=== PATIENT | female | born 1985 | race Caucasian/White ===

== ENCOUNTER 2016-07-12 18:27 | Emergency (ER) | payer MEDICAID ==
[2016-07-12] MEDS ORDERED: ACETAMINOPHEN 325 MG TABLET PO ONE (19:01)
--- NOTE | 2016-07-12 19:01 | ER Document Report ---
ED Medical Screen (RME) - General Stated Complaint: FEVER Notes: onset: woke up this Am ear swelling, headache and fever nonproductive cough and nasal drainage, been taking dayquil and nyquil I have greeted and performed a rapid initial assessment of this patient. A comprehensive ED assessment and evaluation of the patient, analysis of test results and completion of the medical decision making process will be conducted by additional ED providers. TRAVEL OUTSIDE OF THE [place] IN LAST 30 DAYS: No - Related Data Allergies/Adverse Reactions: No Known Allergies Allergy (Verified 08/17/14 17:34) Past Medical History Pulmonary Medical History: Reports: Hx Asthma, Hx Bronchitis Endocrine Medical History: Reports: Hx Diabetes Mellitus Type 1, Hx Diabetes Mellitus Type 2 Past Surgical History: Reports: Hx Section, Hx Orthopedic Surgery, Hx Tonsillectomy, Hx Tubal Ligation - Immunizations Immunizations up to date: Yes Hx Diphtheria, Pertussis, Tetanus Vaccination: Yes
[2016-07-12] MEDS ORDERED: ALBUTEROL SULFATE 0.083% NEB 2.5 MG/3 ML AMPUL NEB ONE (20:32)
[2016-07-12] MEDS ORDERED: IBUPROFEN 800 MG TABLET ONE (22:14)
[2016-07-12] MEDS ORDERED: DIPHENHYDRAMINE HCL 25 MG CAPSULE ONE (22:14)
[2016-07-12] MEDS ORDERED: ONDANSETRON 4 MG TAB.RAPDIS ONE (22:15)
== END 2016-07-12 21:37 | disposition left against medical advice (07) ==
LOC: ER 18:27
DX: R50.9 Fever, unspecified (principal); R51 Headache; R05 Cough; J45.909 Unspecified asthma, uncomplicated; E11.9 Type 2 diabetes mellitus without complications; Z98.51 Tubal ligation status
CPT/HCPCS: 94640; 99281; J3490

== ENCOUNTER 2016-07-12 21:56 | Emergency (ER) | payer SELFPAY ==
[2016-07-12] MEDS ORDERED: DIPHENHYDRAMINE HCL 50 MG CAPSULE PO ONE (22:09)
[2016-07-12] MEDS ORDERED: ONDANSETRON HCL 8 MG TABLET PO ONE (22:09)
[2016-07-12] MEDS ORDERED: IBUPROFEN 800 MG TABLET PO ONE (22:09)
--- NOTE | 2016-07-12 22:09 | ER Document Report ---
ED Medical Screen (RME) - General Stated Complaint: EAR PAIN,THROAT PAIN Notes: patient is a 31 year old female who woke up this morning with b/l ear swelling and pain, hives, shortness of breath consistent with her asthma, body aches, neck pain and headache, and blurry vision had been taking dayquil and nyquil for what she thought was the flu took benadryl earlier this afternoon type II Dm I have greeted and performed a rapid initial assessment of this patient. A comprehensive ED assessment and evaluation of the patient, analysis of test results and completion of the medical decision making process will be conducted by additional ED providers. TRAVEL OUTSIDE OF THE [place] IN LAST 30 DAYS: No - Related Data Allergies/Adverse Reactions: No Known Allergies Allergy (Verified 08/17/14 17:34) Past Medical History Pulmonary Medical History: Reports: Hx Asthma, Hx Bronchitis Endocrine Medical History: Reports: Hx Diabetes Mellitus Type 1, Hx Diabetes Mellitus Type 2 Renal/ Medical History: Denies: Hx Peritoneal Dialysis Past Surgical History: Reports: Hx Section, Hx Orthopedic Surgery, Hx Tonsillectomy, Hx Tubal Ligation - Immunizations Immunizations up to date: Yes Hx Diphtheria, Pertussis, Tetanus Vaccination: Yes Physical Exam - Vital signs Vitals: Temp Pulse Resp BP Pulse Ox 98.8 F 115 H 18 126/88 H 96 07/12/16 22:02 07/12/16 22:02 07/12/16 22:02 07/12/16 22:02 07/12/16 22:02 Course - Vital Signs Vital signs: Temp Pulse Resp BP Pulse Ox 98.8 F 115 H 18 126/88 H 96 07/12/16 22:02 07/12/16 22:02 07/12/16 22:02 07/12/16 22:02 07/12/16 22:02
--- NOTE | 2016-07-13 01:56 | ER Document Report ---
ED ENT - General Chief Complaint: Rash Stated Complaint: EAR PAIN,THROAT PAIN Time seen by provider: 01:52 Mode of Arrival: Ambulatory Information source: Patient TRAVEL OUTSIDE OF THE [place] IN LAST 30 DAYS: No - HPI Patient complains to provider of: Throat problem Onset: This morning Onset/Duration: Gradual Quality of pain: Achy Severity: Mild Pain Level: 2 Location of pain: Ears, Sinus, Throat Associated symptoms: Chills, Congestion, Cough, Dizziness, Fever, Runny nose, Sinus pain, Sore throat Similar symptoms previously: Yes Recently seen / treated by doctor: Yes Notes: Patient is a 31-year-old female presenting to the emergency room complaining of fever, ear pain, ear swelling, facial rash, headache, cough productive of clear phlegm, symptoms started yesterday, she denies any abdominal pain, no nausea, vomiting or diarrhea today, no dysuria or hematuria, states she was seen by her primary care provider yesterday for similar symptoms - Related Data Allergies/Adverse Reactions: No Known Allergies Allergy (Verified 08/17/14 17:34) Past Medical History - General Information source: Patient - Social History Smoking Status: Current Every Day Smoker Chew tobacco use (# tins/day): No Frequency of alcohol use: None Drug Abuse: None Family History: Reviewed & Not Pertinent Patient has suicidal ideation: No Patient has homicidal ideation: No Pulmonary Medical History: Reports: Hx Asthma, Hx Bronchitis Endocrine Medical History: Reports: Hx Diabetes Mellitus Type 1, Hx Diabetes Mellitus Type 2 Renal/ Medical History: Denies: Hx Peritoneal Dialysis Past Surgical History: Reports: Hx Section, Hx Orthopedic Surgery, Hx Tonsillectomy, Hx Tubal Ligation - Immunizations Immunizations up to date: Yes Hx Diphtheria, Pertussis, Tetanus Vaccination: Yes Review of Systems - Review of Systems Constitutional: Chills, Fever, Malaise EENT: See HPI Cardiovascular: No symptoms reported Respiratory: See HPI Gastrointestinal: No symptoms reported Genitourinary: No symptoms reported Female Genitourinary: No symptoms reported Musculoskeletal: See HPI Skin: No symptoms reported Hematologic/Lymphatic: No symptoms reported Neurological/Psychological: Headaches -: Yes All other systems reviewed and negative Physical Exam - Vital signs Vitals: Temp Pulse Resp BP Pulse Ox 98.8 F 115 H 18 126/88 H 96 07/12/16 22:02 07/12/16 22:02 07/12/16 22:02 07/12/16 22:02 07/12/16 22:02 Interpretation: Normal - General General appearance: Appears well, Alert - HEENT Head: Normocephalic, Atraumatic Eyes: Normal Conjunctiva: Normal Extraocular movements intact: Yes Eyelashes: Normal Pupils: PERRL Ears: Normal External canal: Normal Tympanic membrane: Normal Sinus: Normal Nasal: Normal Mouth/Lips: Normal Mucous membranes: Normal Pharynx: Normal Neck: Normal - Respiratory Respiratory status: No respiratory distress Chest status: Nontender Breath sounds: Normal Chest palpation: Normal - Cardiovascular Rhythm: Regular Heart sounds: Normal auscultation Murmur: No - Abdominal Inspection: Normal Distension: No distension Bowel sounds: Normal Tenderness: Nontender Organomegaly: No organomegaly - Back Back: Normal, Nontender - Extremities General upper extremity: Normal inspection, Nontender, Normal color, Normal ROM , Normal temperature General lower extremity: Normal inspection, Nontender, Normal color, Normal ROM , Normal temperature, Normal weight bearing. No: Caridad's sign - Neurological Neuro grossly intact: Yes Cognition: Normal Orientation: AAOx4 Rosendo Coma Scale Eye Opening: Spontaneous Riddle Coma Scale Verbal: Oriented Riddle Coma Scale Motor: Obeys Commands Rosendo Coma Scale Total: 15 Speech: Normal Motor strength normal: LUE, RUE, LLE, RLE Sensory: Normal - Psychological Associated symptoms: Normal affect, Normal mood - Skin Skin Temperature: Warm Skin Moisture: Dry Skin Color: Normal Course - Re-evaluation Re-evalutation: 07/13/16 01:54 Patient reports most of her symptoms are resolved, she still continues to report swelling and pain to her ears, I'm unable to palpate any edema, her ears are mildly erythematous, however there is no swelling, patient was advised that her symptoms are viral in nature, and advised to give supportive care, follow up with her primary care provider in one to 2 days or return if symptoms worsen , patient acknowledges understanding and agreement with this plan, patient was informed of her test results 07/13/16 02:50 Nursing staff reports that upon discharge patient expressed displeasure with her diagnosis and stated she will be going to [facility] for a second opinion - Vital Signs Vital signs: Temp Pulse Resp BP Pulse Ox 97.8 F 95 18 116/76 96 07/13/16 02:08 07/13/16 02:08 07/13/16 02:08 07/13/16 02:08 07/13/16 02:08 Discharge - Discharge Clinical Impression: Viral upper respiratory illness Acute allergic reaction Qualifiers: Encounter type: initial encounter Qualified Code(s): T78.40XA - Allergy, unspecified, initial encounter Condition: Stable Disposition: HOME, SELF-CARE Instructions: Upper Respiratory Illness ([facility]), Viral Syndrome ([facility]), Fever ([facility] ), Acute Allergic Reaction ([facility]) Additional Instructions: Drink plenty of fluids. Tylenol or Motrin as needed for fever. Follow-up with your primary care provider in one to 2 days. Return to the emergency room immediately if symptoms worsen or any additional concerns. Forms: Return to Work
[2016-07-13 02:09] VITALS: BP 116/76
== END 2016-07-13 02:09 | disposition home or self-care (01) ==
LOC: ER 21:56
DX: J06.9 Acute upper respiratory infection, unspecified (principal); H92.09 Otalgia, unspecified ear; R53.81 Other malaise; T78.40XA Allergy, unspecified, initial encounter; R21 Rash and other nonspecific skin eruption; E11.9 Type 2 diabetes mellitus without complications; F17.200 Nicotine dependence, unspecified, uncomplicated; X58.XXXA Exposure to other specified factors, initial encounter; Z98.51 Tubal ligation status
CPT/HCPCS: 99283; 36415; 87070; 87880; 86308; 87804; S0119

== ENCOUNTER 2016-09-03 14:12 | Emergency (ER) | payer SELFPAY ==
[2016-09-03] MEDS ORDERED: ONDANSETRON 4 MG TAB.RAPDIS PO ONE (14:57)
--- NOTE | 2016-09-03 14:58 | ER Document Report ---
ED Medical Screen (RME) - General Stated Complaint: WEAKNESS Notes: She complains of intermittent blurred vision, nausea and dizziness. Patient states she has a history of migraines. Patient states she feels weak. Patient is diabetic, but has not been on medications for the last couple of months due to loss of insurance. Patient states she has been told she has neuropathy, complains of numbness in her toes. I have greeted and performed a rapid initial assessment of this patient. A comprehensive ED assessment and evaluation of the patient, analysis of test results and completion of the medical decision making process will be conducted by additional ED providers. TRAVEL OUTSIDE OF THE [place] IN LAST 30 DAYS: No - Related Data Allergies/Adverse Reactions: No Known Allergies Allergy (Verified 09/03/16 14:55) Past Medical History Pulmonary Medical History: Reports: Hx Asthma, Hx Bronchitis Endocrine Medical History: Reports: Hx Diabetes Mellitus Type 1, Hx Diabetes Mellitus Type 2 Renal/ Medical History: Denies: Hx Peritoneal Dialysis Past Surgical History: Reports: Hx Section, Hx Orthopedic Surgery, Hx Tonsillectomy, Hx Tubal Ligation - Immunizations Immunizations up to date: Yes Hx Diphtheria, Pertussis, Tetanus Vaccination: Yes Physical Exam - Vital signs Vitals: Temp Pulse Resp BP Pulse Ox 98.2 F 94 20 115/86 H 97 09/03/16 14:28 09/03/16 14:28 09/03/16 14:28 09/03/16 14:28 09/03/16 14:28 - Respiratory Respiratory status: No respiratory distress Breath sounds: Normal Course - Vital Signs Vital signs: Temp Pulse Resp BP Pulse Ox 98.2 F 94 20 115/86 H 97 09/03/16 14:28 09/03/16 14:28 09/03/16 14:28 09/03/16 14:28 09/03/16 14:28
[2016-09-03 15:39] LABS: ABSOLUTE EOSINOPHILS # (AUTO) 0.2 10^3/uL (0.0-0.6); ABSOLUTE LYMPHOCYTES (AUTO) 3.4 10^3/uL (0.5-4.7); ABSOLUTE MONOCYTES (AUTO) 0.5 10^3/uL (0.1-1.4); ABSOLUTE NEUT (AUTO) 5.4 10^3/uL (1.7-8.2); BASOPHILS % (AUTO) 0.5 % (0-2); EOSINOPHILS % (AUTO) 2.2 % (0-6); HEMATOCRIT 36.7 % (36.0-47.0); HEMOGLOBIN 12.5 g/dL (12.0-15.5); HGB HCT DIFFERENCE 0.8; LYMPHOCYTES % (AUTO) 35.5 % (13-45); MEAN CORPUSCULAR HEMOGLOBIN 31.2 pg (27.0-33.4); MEAN CORPUSCULAR HGB CONC 33.9 g/dL (32.0-36.0); MEAN CORPUSCULAR VOLUME 92 fl (80-97); MONOCYTES % (AUTO) 5.7 % (3-13); RED BLOOD COUNT 3.99 10^6/uL (3.72-5.28); RED CELL DISTRIBUTION WIDTH 14.3 % (11.5-14.0); SEGMENTED NEUTROPHILS % (AUTO) 56.1 % (42-78); WHITE BLOOD COUNT 9.7 10^3/uL (4.0-10.5)
[2016-09-03 15:44] LABS: APPEARANCE,URINE CLOUDY; BILIRUBIN,URINE NEGATIVE (NEGATIVE); GLUCOSE, URINE >=500 mg/dL (NEGATIVE); KETONES,URINE TRACE mg/dL (NEGATIVE); LEUKOCYTE ESTERASE,URINE MODERATE (NEGATIVE); NITRITE,URINE NEGATIVE (NEGATIVE); PROTEIN,URINE NEGATIVE (NEGATIVE); UROBILINOGEN,URINE NEGATIVE mg/dL (<2.0)
[2016-09-03 15:51] LABS: ALANINE AMINOTRANSFERASE 31 U/L (9-52); ALKALINE PHOSPHATASE 64 U/L (38-126); ANION GAP 14 (5-19); ASPARTATE AMINO TRANSFERASE 18 U/L (14-36); BILIRUBIN,DIRECT 0.2 mg/dL (0.0-0.4); BILIRUBIN,TOTAL 0.3 mg/dL (0.2-1.3); BLOOD UREA NITROGEN 7 mg/dL (7-20); CALCIUM 9.3 mg/dL (8.4-10.2); CARBON DIOXIDE 25 mmol/L (22-30); CHLORIDE 100 mmol/L (98-107); CREATININE RESULT 0.58 mg/dL (0.52-1.25); GLUCOSE 282 mg/dL (75-110); LIPASE 96.7 U/L (23-300); POTASSIUM 4.2 mmol/L (3.6-5.0); SODIUM 138.7 mmol/L (137-145)
--- NOTE | 2016-09-03 21:55 | ER Document Report ---
ED General <KVNG KNOX - Last Filed: 09/03/16 21:57> - General Mode of Arrival: Ambulatory Information source: Patient TRAVEL OUTSIDE OF THE [place] IN LAST 30 DAYS: No - HPI Onset: Other <FILOMENA LESTER - Last Filed: 09/03/16 22:14> - General Chief Complaint: Dizziness Stated Complaint: WEAKNESS Notes: Patient is a 31-year-old female that presents to the emergency department today with multiple generalized complaints. Patient complains of visual disturbances , stating she was "seeing black spots" out of both eyes today. Patient states that her vision was better after waking up from the nap that she was taking. Patient states that she has been having these visual problems for several months and it seemed to get worse today at noon. Patient states when her vision got very bad she began to feel nauseated. Patient also mentions tingling in her toes. Patient states she has been off of her insulin for several months because she cannot afford the medication. Patient requesting refill on her inhaler, stating she is short of breath now. Patient contradicts herself frequently throughout the exam so history is difficult to obtain. (FILOMENA LESTER) - Related Data Allergies/Adverse Reactions: No Known Allergies Allergy (Verified 09/03/16 14:55) Past Medical History - General Information source: Patient, [facility] Records - Social History Smoking Status: Current Every Day Smoker Cigarette use (# per day): Yes Chew tobacco use (# tins/day): No Frequency of alcohol use: None Drug Abuse: None Lives with: Family Family History: Reviewed & Not Pertinent Patient has suicidal ideation: No Patient has homicidal ideation: No Pulmonary Medical History: Reports: Hx Asthma, Hx Bronchitis Endocrine Medical History: Reports: Hx Diabetes Mellitus Type 1, Hx Diabetes Mellitus Type 2 Past Surgical History: Reports: Hx Section, Hx Orthopedic Surgery, Hx Tonsillectomy, Hx Tubal Ligation - Immunizations Immunizations up to date: Yes Hx Diphtheria, Pertussis, Tetanus Vaccination: Yes <FILOMENA LESTER - Last Filed: 09/03/16 22:14> Review of Systems - Review of Systems Constitutional: No symptoms reported EENT: See HPI, Blurred vision Cardiovascular: See HPI, Dizziness Respiratory: See HPI, Short of breath Gastrointestinal: See HPI, Nausea Genitourinary: No symptoms reported Female Genitourinary: No symptoms reported Musculoskeletal: No symptoms reported Skin: No symptoms reported Hematologic/Lymphatic: No symptoms reported Neurological/Psychological: See HPI, Headaches, Tingling -: Yes All other systems reviewed and negative <FILOMENA LESTER - Last Filed: 09/03/16 22:14> Physical Exam <KVNG KNOX - Last Filed: 09/03/16 21:57> <FILOMENA LESTER - Last Filed: 09/03/16 22:14> - Vital signs Vitals: Temp Pulse Resp BP Pulse Ox 98.2 F 94 20 115/86 H 97 09/03/16 14:28 09/03/16 14:28 09/03/16 14:28 09/03/16 14:28 09/03/16 14:28 - Notes Notes: Physical Exam: General: Sound asleep upon entry into room, difficult to awaken. Patient slowly woke up, when fully awake patient still appeared to be groggy as if she was sedated. HEENT: Normocephalic. Atraumatic. PERRL. Extraocular movements intact. Oropharynx clear. Neck: Supple. Non-tender. Respiratory: No respiratory distress. Clear and equal breath sounds bilaterally. Cardiovascular: Regular rate and rhythm. Abdominal: Obese. Non-tender. No distension. Normal Bowel Sounds. Back: Non-tender. No deformity or step off. Extremities: Moves all four extremities. Upper extremities: Normal inspection. Normal ROM. No edema. Lower extremities: Normal inspection.No edema. Normal ROM. Neurological: Normal cognition. AAOx4. Normal speech. Psychological: Normal affect. Normal Mood. Skin: Warm. Dry. Normal color. (FILOMENA LESTER) Course - Laboratory Result Diagrams: 09/03/16 15:10 09/03/16 15:10 <KVNG KNOX - Last Filed: 09/03/16 21:57> - Laboratory Result Diagrams: 09/03/16 15:10 09/03/16 15:10 <FILOMENA LESTER - Last Filed: 09/03/16 22:14> - Vital Signs Vital signs: Temp Pulse Resp BP Pulse Ox 98.2 F 94 20 115/86 H 97 09/03/16 14:28 09/03/16 14:28 09/03/16 14:28 09/03/16 14:28 09/03/16 14:28 - Laboratory Laboratory results interpreted by me: 09/03/16 09/03/16 09/03/16 15:10 15:10 15:10 RDW 14.3 H Glucose 282 H Hemoglobin A1c % 8.9 H Urine Glucose (UA) Urine Ketones Urine Blood Ur Leukocyte Esterase 09/03/16 15:15 RDW Glucose Hemoglobin A1c % Urine Glucose (UA) >=500 H Urine Ketones TRACE H Urine Blood LARGE H Ur Leukocyte Esterase MODERATE H Discharge <KVNG KNOX - Last Filed: 09/03/16 21:57> <FILOMENA LESTER - Last Filed: 09/03/16 22:14> - Discharge Clinical Impression: Blurred vision, bilateral, Has run out of medications, Neuropathy Diabetes Qualifiers: Diabetes mellitus type: type 2 Diabetes mellitus complication status: without complication 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 Your visual problems may also be related to your untreated diabetes. The numbness in your toes may also be related to diabetes. Take the medications as prescribed. Drink plenty of water tonight and tomorrow. Follow-up with your doctor to manage her diabetes. Follow-up with your doctor tomorrow if your vision symptoms have not improved. Prescriptions: Albuterol Sulfate [Proair HFA] 1 - 2 puff IH Q4 PRN #1 inhaler PRN Reason: Glipizide [Glucotrol 5 mg Tablet] 5 mg PO DAILY #30 tablet Forms: Return to Work Scribe Attestation: 09/03/16 22:05 I personally performed the services described in the documentation, reviewed and edited the documentation which was dictated to the scribe in my presence, and it accurately records my words and actions. (KVNG KNOX) Scribe Documentation - Scribe Written by Bricee:: Anny Oakley, 09/03/2016 2214 acting as scribe for :: Drew <FILOMENA LESTER - Last Filed: 09/03/16 22:14>
[2016-09-03 22:46] VITALS: BP 126/80
== END 2016-09-03 22:46 | disposition home or self-care (01) ==
LOC: ER 14:12
DX: H53.8 Other visual disturbances (principal); G62.9 Polyneuropathy, unspecified; E11.9 Type 2 diabetes mellitus without complications; R42 Dizziness and giddiness; R53.1 Weakness; R20.0 Anesthesia of skin; F17.210 Nicotine dependence, cigarettes, uncomplicated
CPT/HCPCS: 99284; 36415; 84702; 83690; 85025; 80053; 81001; 83036; S0119

== ENCOUNTER 2016-09-09 09:47 | Emergency (ER) | payer BC, OTHER ==
[2016-09-09 10:52] LABS: ABSOLUTE EOSINOPHILS # (AUTO) 0.2 10^3/uL (0.0-0.6); ABSOLUTE LYMPHOCYTES (AUTO) 3.1 10^3/uL (0.5-4.7); ABSOLUTE MONOCYTES (AUTO) 0.6 10^3/uL (0.1-1.4); ABSOLUTE NEUT (AUTO) 5.3 10^3/uL (1.7-8.2); BASOPHILS % (AUTO) 0.5 % (0-2); EOSINOPHILS % (AUTO) 1.9 % (0-6); HEMATOCRIT 36.4 % (36.0-47.0); HEMOGLOBIN 12.2 g/dL (12.0-15.5); HGB HCT DIFFERENCE 0.2; LYMPHOCYTES % (AUTO) 33.6 % (13-45); MEAN CORPUSCULAR HEMOGLOBIN 30.9 pg (27.0-33.4); MEAN CORPUSCULAR HGB CONC 33.6 g/dL (32.0-36.0); MEAN CORPUSCULAR VOLUME 92 fl (80-97); MONOCYTES % (AUTO) 6.6 % (3-13); RED BLOOD COUNT 3.96 10^6/uL (3.72-5.28); RED CELL DISTRIBUTION WIDTH 13.8 % (11.5-14.0); SEGMENTED NEUTROPHILS % (AUTO) 57.4 % (42-78); WHITE BLOOD COUNT 9.2 10^3/uL (4.0-10.5)
[2016-09-09 10:58] LABS: APPEARANCE,URINE SLIGHTLY-CLOUDY; BILIRUBIN,URINE NEGATIVE (NEGATIVE); GLUCOSE, URINE >=500 mg/dL (NEGATIVE); KETONES,URINE NEGATIVE (NEGATIVE); LEUKOCYTE ESTERASE,URINE SMALL (NEGATIVE); NITRITE,URINE NEGATIVE (NEGATIVE); PROTEIN,URINE NEGATIVE (NEGATIVE); UROBILINOGEN,URINE NEGATIVE mg/dL (<2.0)
[2016-09-09 11:16] LABS: ALANINE AMINOTRANSFERASE 26 U/L (9-52); ALBUMIN 3.4 g/dL (3.5-5.0); ALKALINE PHOSPHATASE 56 U/L (38-126); ANION GAP 10 (5-19); ASPARTATE AMINO TRANSFERASE 13 U/L (14-36); BILIRUBIN,DIRECT 0.2 mg/dL (0.0-0.4); BILIRUBIN,TOTAL 0.3 mg/dL (0.2-1.3); BLOOD UREA NITROGEN 8 mg/dL (7-20); CARBON DIOXIDE 23 mmol/L (22-30); CHLORIDE 105 mmol/L (98-107); CREATININE RESULT 0.57 mg/dL (0.52-1.25); GLUCOSE 222 mg/dL (75-110); POTASSIUM 4.3 mmol/L (3.6-5.0); SODIUM 138.4 mmol/L (137-145); TOTAL PROTEIN 6.3 g/dL (6.3-8.2)
--- NOTE | 2016-09-09 11:36 | ER Document Report ---
ED General - General Mode of Arrival: Medic Information source: Patient TRAVEL OUTSIDE OF THE U.S. IN LAST 30 DAYS: No - HPI Patient complains to provider of: Hyperglycemia Onset: Other - Ongoing, poor compliance with medication <MYLES CUENCA - Last Filed: 09/09/16 11:30> <KVNG KNOX - Last Filed: 09/09/16 12:22> - General Chief Complaint: High Blood Sugar Stated Complaint: ELEVATED BLOOD SUGAR Notes: Patient is a 31-year-old female presenting to the emergency department concerned of her ongoing hyperglycemia due to lack of compliance with her medications. Patient states that she is having financial issues and that she did not know that the medication she was prescribed last time she was here was on the $[address] [facility]. Patient states that she is continuing to have the dark spots in her field of vision and accompanied blurred vision. Patient also complains of numbness in her left big toe and sores on her to middle toes. Patient also states that other sores are popping up on her arms and legs. Patient complains of ongoing difficulty breathing, and she thinks she may be having a genital herpes flareup. (MYLES CUENCA) The patient was seen 6 days ago for the same complaints except he is now also complaining about vaginal sores, with a history of genital herpes in the past. She did not get the prescription for the glipizide filled. She did not try to see an eye doctor for her vision problems of several months duration. She was advised that the vaginal problem will probably be a yeast infection and will be very difficult, if not impossible to clear up if she does not take the diabetes medication. She also was advised that her visual changes could be due to high blood sugars and doing accurate refractory exams will be difficult if she does not get her blood sugars under control. She was further told that retinal problems are common in diabetics who do not control their sugars. (KVNG KNOX) - Related Data Allergies/Adverse Reactions: No Known Allergies Allergy (Verified 09/03/16 14:55) Past Medical History - General Information source: Patient - Social History Smoking Status: Current Some Day Smoker Chew tobacco use (# tins/day): No Frequency of alcohol use: None Drug Abuse: None Family History: Reviewed & Not Pertinent Pulmonary Medical History: Reports: Hx Asthma, Hx Bronchitis Endocrine Medical History: Reports: Hx Diabetes Mellitus Type 2 Renal/ Medical History: Denies: Hx Peritoneal Dialysis Past Surgical History: Reports: Hx Section, Hx Orthopedic Surgery, Hx Tonsillectomy, Hx Tubal Ligation - Immunizations Immunizations up to date: Yes Hx Diphtheria, Pertussis, Tetanus Vaccination: Yes <MYLES CUENCA - Last Filed: 09/09/16 11:30> Review of Systems - Review of Systems Constitutional: See HPI, Other - Hyperglycemia EENT: See HPI, Blurred vision Cardiovascular: No symptoms reported Respiratory: No symptoms reported Gastrointestinal: No symptoms reported Genitourinary: No symptoms reported Female Genitourinary: See HPI, Other - Possible vaginal herpes flareup Musculoskeletal: See HPI, Other - Left big toe numb. "sores" on left 2nd and 3rd toe. Skin: No symptoms reported Hematologic/Lymphatic: No symptoms reported Neurological/Psychological: No symptoms reported -: Yes All other systems reviewed and negative <MYLES CUENCA - Last Filed: 09/09/16 11:30> Physical Exam - General General appearance: Alert - HEENT Head: Normocephalic, Atraumatic Eyes: Normal Pupils: PERRL - Respiratory Respiratory status: No respiratory distress Chest status: Nontender Breath sounds: Rhonchi - Cardiovascular Rhythm: Regular Heart sounds: Normal auscultation Murmur: No - Abdominal Inspection: Normal Distension: No distension Bowel sounds: Normal Tenderness: Nontender Organomegaly: No organomegaly - Back Back: Normal, Nontender - Extremities General upper extremity: Nontender, Normal ROM General lower extremity: Nontender, Normal ROM - Neurological Neuro grossly intact: Yes Cognition: Normal [place] Coma Scale Eye Opening: Spontaneous [place] Coma Scale Verbal: Oriented [place] Coma Scale Motor: Obeys Commands [place] Coma Scale Total: 15 Speech: Normal - Psychological Associated symptoms: Normal affect, Normal mood - Skin Skin Temperature: Warm Skin Moisture: Dry Skin irregularity: other - Dry scaly skin over left 3rd toe and both arms <MYLES CUENCA - Last Filed: 09/09/16 11:30> - Genitourinary External exam: Laceration - There are small vertical tears in the upper labia minora region consistent with yeast infection. Speculum exam: Cervix closed - There is no cervical discharge seen, Other - There is white adherent discharge on the vaginal shrestha consistent with yeast infection <KVNG KNOX - Last Filed: 09/09/16 12:22> - Vital signs Vitals: Temp Pulse Resp BP Pulse Ox 98.1 F 81 16 120/75 97 09/09/16 10:11 09/09/16 10:11 09/09/16 10:11 09/09/16 10:11 09/09/16 10:11 Course - Laboratory Result Diagrams: 09/09/16 10:25 09/09/16 10:25 <MYLES CUENCA - Last Filed: 09/09/16 11:30> - Laboratory Result Diagrams: 09/09/16 10:25 09/09/16 10:25 <KVNG KNOX - Last Filed: 09/09/16 12:22> - Vital Signs Vital signs: Temp Pulse Resp BP Pulse Ox 98.1 F 81 16 120/75 97 09/09/16 10:11 09/09/16 10:11 09/09/16 10:11 09/09/16 10:11 09/09/16 10:11 - Laboratory Laboratory results interpreted by me: 09/09/16 09/09/16 10:25 10:30 Glucose 222 H AST 13 L Albumin 3.4 L Urine Glucose (UA) >=500 H Urine Blood SMALL H Ur Leukocyte Esterase SMALL H Discharge <MYLES CUENCA - Last Filed: 09/09/16 11:30> <KVNG KNOX - Last Filed: 09/09/16 12:22> - Discharge Clinical Impression: Yeast vaginitis, Chronic visual disturbance Hyperglycemia due to type 2 diabetes mellitus Qualifiers: Diabetes mellitus group home insulin use: unspecified group home insulin use status Qualified Code(s): E11.65 - Type 2 diabetes mellitus with hyperglycemia Condition: Stable Disposition: HOME, SELF-CARE Additional Instructions: Vaginal Yeast Infection: You have evidence of a yeast infection -- called "mahi." A vaginal yeast infection often causes itching and discharge. While not dangerous, it can be very unpleasant. A yeast infection often follows the use of powerful antibiotics. It is more likely to occur in diabetics. The treatment now is usually a single pill of Diflucan, but also an antifungal cream or suppository may be used for a few days. You do not need to avoid sexual intercourse. Recurrences are common. You can make a recurrence less likely by wearing cotton underwear and avoiding tight clothing. For mild recurrences, you can try [id number] creams or suppositories that are made specifically for yeast. If the symptoms do not resolve, you should follow up for re-examination. Sometimes treatment of the sexual partner is necessary if infections are recurrent. Diabetes: You have diabetes. Uncontrolled high blood sugar leads to early heart disease, strokes, nerve damage, eye damage, and kidney damage. All diabetics should follow a diet designed to control the blood sugar. Overweight diabetics should exercise regularly and lose weight. If this is not sufficient to control the blood sugar, pills or insulin shots are necessary. Younger people who develop diabetes almost always require insulin daily. Home testing of blood sugars or urine sugar is required. Diabetic teaching is available to help you figure insulin doses and monitor the blood sugar. Call the physician if there is faintness, excess sleepiness, or very rapid breathing. If hypoglycemia (LOW blood sugar) develops, symptoms are shakiness, weakness, sweating, and confusion. In this case, you should eat or drink something with sugar at once. GET THE GLIPIZIDE PRESCRIPTION FILLED AND START TAKING TODAY. START THE DIFLUCAN TOMORROW. DRINK PLENTY OF FLUIDS. FOLLOW UP WITH A LOCAL EYE DOCTOR TO EVALUATE YOUR VISION. FOLLOW UP WITH A LOCAL MEDICAL DOCTOR TO MANAGE YOUR DIABETES. RETURN TO THE EMERGENCY ROOM IF ANY NEW OR WORSENING SYMPTOMS. Prescriptions: Fluconazole [Diflucan 100 Mg Tablet] 100 mg PO DAILY #4 tablet Forms: Return to Work Scribe Attestation: 09/09/16 12:18 I personally performed the services described in the documentation, reviewed and edited the documentation which was dictated to the scribe in my presence, and it accurately records my words and actions. (KVNG KNOX) Scribe Documentation - Scribe Written by Scribe:: Myles Cuenca 09/09/2016 1132 acting as scribe for :: Drew <MYLES CUENCA - Last Filed: 09/09/16 11:30>
[2016-09-09] MEDS ORDERED: FLUCONAZOLE 100 MG TABLET PO ONE (12:08)
[2016-09-09 14:14] VITALS: BP 114/78
== END 2016-09-09 14:17 | disposition home or self-care (01) ==
LOC: ER 09:47
DX: N76.0 Acute vaginitis (principal); H53.9 Unspecified visual disturbance; E11.65 Type 2 diabetes mellitus with hyperglycemia; F17.200 Nicotine dependence, unspecified, uncomplicated
CPT/HCPCS: 36415; 80053; 81001; 82962; 85025; 99285

== ENCOUNTER 2016-11-11 11:02 | Emergency (ER) | payer BC, OTHER ==
[2016-11-11 11:08] VITALS: BP 119/97
[2016-11-11] MEDS ORDERED: OXYCODONE-ACETAMINOPHEN 5-325 MG TABLET PO ONE (12:30)
--- NOTE | 2016-11-11 12:33 | ER Document Report ---
HPI - HPI Patient complains to provider of: low back pain Onset: Just prior to arrival Onset/Duration: Sudden Quality of pain: Achy Severity: Severe Pain Level: 5 Context: Patient presents to the emergency department with complaints of low back pain with pain radiating down her left leg. She reports history of back pain and surgery over 5 years ago. She reports she works at the [employer]. Today she was lifting a heavy box over her head and into the trash bin when she suddenly experienced severe pain. She denies urinary or bowel incontinence or retention. She does report a history of sciatica and reports that it feels the same way. Associated Symptoms: None Exacerbated by: Movement Relieved by: Denies Similar symptoms previously: Yes Recently seen / treated by doctor: No - REPRODUCTIVE Reproductive: DENIES: : - DERM Skin Color: Normal Past Medical History - Social History Smoking Status: Unknown if Ever Smoked Cigarette use (# per day): No Frequency of alcohol use: None Drug Abuse: None Occupation: [employer] Family History: Reviewed & Not Pertinent Patient has suicidal ideation: No Patient has homicidal ideation: No Pulmonary Medical History: Reports: Hx Asthma, Hx Bronchitis Endocrine Medical History: Reports: Hx Diabetes Mellitus Type 1, Hx Diabetes Mellitus Type 2 Renal/ Medical History: Denies: Hx Peritoneal Dialysis Past Surgical History: Reports: Hx Section, Hx Orthopedic Surgery - back surgery, Hx Tonsillectomy, Hx Tubal Ligation - Immunizations Immunizations up to date: Yes Hx Diphtheria, Pertussis, Tetanus Vaccination: Yes Vertical Provider Document - CONSTITUTIONAL Agree With Documented VS: Yes Exam Limitations: No Limitations General Appearance: WD/WN - INFECTION CONTROL TRAVEL OUTSIDE OF THE [place].S[place] IN LAST 30 DAYS: No - HEENT HEENT: Atraumatic, Normocephalic - NECK Neck: Normal Inspection, Supple. negative: Thyroid Normal, Lymphadenopathy-Left - RESPIRATORY Respiratory: Breath Sounds Normal, No Respiratory Distress O2 Sat by Pulse Oximetry: 97 - CARDIOVASCULAR Cardiovascular: Regular Rate - GI/ABDOMEN Gastrointestinal: Abdomen Soft, Abdomen Non-Tender - BACK Back: Normal Inspection - No obvious deformity no swelling no erythema no warmth no weakness decreased patella reflexes but patient reports her reflexes have always been slow. Good distal movement and sensation - MUSCULOSKELETAL/EXTREMETIES Musculoskeletal/Extremeties: AAYUSH MACEDO - NEURO Level of Consciousness: Awake, Alert, Appropriate Motor/Sensory: No Motor Deficit - DERM Integumentary: Warm, Dry Adult Front & Back Diagram: 1 - Complains of low back pain 2 - radiates down her left leg Course - Re-evaluation Re-evalutation: 11/11/16 Patient instructed on all medications. She reports she is familiar with them. She also reports she has an appointment with her back, orthopedic provider this . The patient presents with low back pain without signs of spinal cord compression , cauda equine syndrome, infection, aneurysm, or other serious etiology. The patient is neurologically intact. The patient has good distal movement and sensation, denies urinary or bowel incontinence/retention. Given the extremely low risk of these diagnosis, further testing and evaluation for these possibilities does not appear to be indicated at this time. The patient has been instructed to return if the symptoms worsen or change in anyway. - Vital Signs Vital signs: Temp Pulse Resp BP Pulse Ox 98.0 F 78 18 119/97 H 97 11/11/16 11:05 11/11/16 11:05 11/11/16 11:05 11/11/16 11:05 11/11/16 11:05 Discharge - Discharge Clinical Impression: Low back pain Qualifiers: Chronicity: acute Back pain laterality: bilateral Sciatica presence: with sciatica Sciatica laterality: sciatica of left side Qualified Code(s): M54.42 - Lumbago with sciatica, left side Condition: Serious Disposition: HOME, SELF-CARE Instructions: Oral Narcotic Medication ([facility]), Low Back Pain ([facility]), Ice Packs ( [facility]), Muscle Relaxers ([facility]), Anti-Inflammatory Medication ([facility]) Additional Instructions: *You have been evaluated for back pain *Take medication as prescribed *Rest/Ice packs as indicated *Follow up with your back provider as scheduled *Return to ED for worsening condition, changes, needs Prescriptions: Cyclobenzaprine HCl [Flexeril 10 Mg Tablet] 10 mg PO TID #30 tablet Naproxen 500 mg PO BID #20 tablet Oxycodone HCl/Acetaminophen [Percocet 5-325 mg Tablet] 1 - 2 tab PO ASDIR PRN # 20 tablet PRN Reason: Forms: Return to Work
== END 2016-11-11 13:00 | disposition home or self-care (01) ==
LOC: ER 11:02
DX: M54.42 Lumbago with sciatica, left side (principal); X50.0XXA Overexertion from strenuous movement or load, initial encounter; Y93.89 Activity, other specified; Y92.89 Other specified places as the place of occurrence of the external cause; Y99.0 Civilian activity done for income or pay; J45.909 Unspecified asthma, uncomplicated; E11.9 Type 2 diabetes mellitus without complications; Z98.890 Other specified postprocedural states
CPT/HCPCS: 99283

== ENCOUNTER 2016-11-20 11:01 | Emergency (ER) | payer BC, OTHER ==
[2016-11-20 11:09] VITALS: BP 126/94
[2016-11-20] MEDS ORDERED: KETOROLAC TROMETHAMINE 60 MG/2 ML SDV IM ONE (12:05)
--- NOTE | 2016-11-20 12:06 | ER Document Report ---
ED Neck/Back Problem - General Chief Complaint: Back Pain Stated Complaint: BACK PAIN Time Seen by Provider: 11/20/16 11:57 Notes: 31 yo female c/o persistant left low back pain x 9 days. pt works at [employer]. Was picking up heavy box to through in bin, lifted and twisted. felt acute low back pain with left leg radiculopathy. pt was seen in ED the day of injury. treated with pain medication and muscle relaxant. pain is no better. waiting on worker's comp for referral. pt denies any fevers. no bowel/bladder incontinence. TRAVEL OUTSIDE OF THE [place] IN LAST 30 DAYS: No - HPI Patient complains to provider of: Pain, Lower back Where: Work Onset: Sudden Timing: Constant, Worse Quality of pain: Burning, Pressure, Sharp Pain Level: 5 Recent injury: Yes Associated symptoms: Constipation - most likely from opiod medication, Radiation to leg - left Exacerbated by: Other - any movement Relieved by: Nothing Similar symptoms previously: No Recently seen / treated by doctor: Yes - ED - Related Data Allergies/Adverse Reactions: No Known Allergies Allergy (Verified 11/20/16 11:02) Past Medical History - General Information source: Patient - Social History Smoking Status: Current Every Day Smoker Frequency of alcohol use: None Drug Abuse: None Lives with: Family Family History: Reviewed & Not Pertinent Patient has suicidal ideation: No Patient has homicidal ideation: No Pulmonary Medical History: Reports: Hx Asthma, Hx Bronchitis Endocrine Medical History: Reports: Hx Diabetes Mellitus Type 1, Hx Diabetes Mellitus Type 2 Renal/ Medical History: Denies: Hx Peritoneal Dialysis Past Surgical History: Reports: Hx Section, Hx Orthopedic Surgery - back surgery, Hx Tonsillectomy, Hx Tubal Ligation - Immunizations Immunizations up to date: Yes Hx Diphtheria, Pertussis, Tetanus Vaccination: Yes Review of Systems - Review of Systems Constitutional: No symptoms reported EENT: No symptoms reported Cardiovascular: No symptoms reported Respiratory: No symptoms reported Gastrointestinal: No symptoms reported Genitourinary: No symptoms reported Female Genitourinary: No symptoms reported Musculoskeletal: Back pain Skin: No symptoms reported Hematologic/Lymphatic: No symptoms reported Neurological/Psychological: No symptoms reported Physical Exam - Vital signs Vitals: Temp Pulse Resp BP Pulse Ox 98.2 F 95 16 126/94 H 97 11/20/16 11:05 11/20/16 11:05 11/20/16 11:05 11/20/16 11:05 11/20/16 11:05 Interpretation: Normal - General General appearance: Appears well In distress: Mild - Back Back: Tender - + lumbar spinal tenderness. + left lumbar paraspinal tenderness. + left SI tenderness Course - Re-evaluation Re-evalutation: 11/20/16 13:09 xray negative for fracture. results reviewed with patient. no neurologic symptoms. low suspicion for cauda equina, epidural abscess. will DC home with pain control and followup with primary care for further evaluation and treatment 11/20/16 13:11 pt stable for discharge and agreeable with plan - Vital Signs Vital signs: Temp Pulse Resp BP Pulse Ox 98.2 F 95 16 126/94 H 97 11/20/16 11:05 11/20/16 11:05 11/20/16 11:05 11/20/16 11:05 11/20/16 11:05 Discharge - Discharge Clinical Impression: Low back pain Qualifiers: Chronicity: acute Back pain laterality: midline Sciatica presence: with sciatica Sciatica laterality: sciatica of left side Qualified Code(s): M54.42 - Lumbago with sciatica, left side Condition: Stable Disposition: HOME, SELF-CARE Instructions: Ice Packs ([facility]), Warm Packs ([facility]), Oral Narcotic Medication ([facility]) , Low Back Pain ([facility]), Muscle Relaxers ([facility]) Additional Instructions: Your xray is negative for fracture Please follow up with your primary care [place] for further evaluation and treatment You may need further diagnostics such as MRI Prescriptions: Methocarbamol [Robaxin 500 Mg Tablet] 1,000 mg PO Q6 #30 tablet Oxycodone HCl/Acetaminophen [Percocet 5-325 mg Tablet] 1 - 2 tab PO ASDIR PRN # 25 tablet PRN Reason: Forms: Return to Work
--- NOTE | 2016-11-20 12:40 | RADIOLOGY REPORT (SQ) ---
EXAM DESCRIPTION: L SPINE WHOLE COMPLETED DATE/TIME: 11/20/2016 12:32 pm REASON FOR STUDY: low back pain COMPARISON: None. NUMBER OF VIEWS: Five views including obliques. TECHNIQUE: AP, lateral, oblique, and sacral radiographic images acquired of the lumbar spine. LIMITATIONS: None. FINDINGS: MINERALIZATION: Normal. SEGMENTATION: Normal. No transitional anatomy. ALIGNMENT: Normal. VERTEBRAE: Maintained height. No fracture or worrisome bone lesion. DISCS: There is mild multilevel degenerative disc space narrowing throughout the lumbar spine most si gnificant at L5-S1. No significant osteophyte formation. POSTERIOR ELEMENTS: Pedicles and facets are intact. No pars defect or posterior arch defects. Mild degenerative facet arthropathy. HARDWARE: None in the spine. PARASPINAL SOFT TISSUES: Normal. PELVIS: Intact as visualized. No fractures or worrisome bone lesions. SI joints intact. OTHER: No other significant finding. IMPRESSION: No acute fracture or traumatic subluxation the spine. Mild degenerative changes in the spine TECHNICAL DOCUMENTATION: JOB ID: [id number] [employer]- All Rights Reserved
== END 2016-11-20 13:40 | disposition home or self-care (01) ==
LOC: ER 11:01
DX: M54.42 Lumbago with sciatica, left side (principal); M54.9 Dorsalgia, unspecified; F17.200 Nicotine dependence, unspecified, uncomplicated
CPT/HCPCS: 99283; 96372; 72110; J1885

== ENCOUNTER 2017-06-28 09:00 | Emergency (ER) | payer BC, MEDICAID ==
--- NOTE | 2017-06-28 09:31 | ER Document Report ---
ED Medical Screen (RME) - General Chief Complaint: Vaginal Pain Stated Complaint: VAGINAL PAIN Time Seen by Provider: 06/28/17 09:30 Mode of Arrival: Ambulatory Information source: Patient Notes: 32-year-old female presenting with complaints of "severe vaginal pain". Patient states she noticed blood when wiping today after urination. Patient states she has pain when wiping. Patient states it hurts to sit, walk, or urinate. TRAVEL OUTSIDE OF THE [place] IN LAST 30 DAYS: No - Related Data Allergies/Adverse Reactions: No Known Allergies Allergy (Verified 11/20/16 11:02) Past Medical History - General Information source: [facility] Pulmonary Medical History: Reports: Hx Asthma, Hx Bronchitis Endocrine Medical History: Reports: Hx Diabetes Mellitus Type 1, Hx Diabetes Mellitus Type 2 Past Surgical History: Reports: Hx Section, Hx Orthopedic Surgery - back surgery, Hx Tonsillectomy, Hx Tubal Ligation - Immunizations Immunizations up to date: Yes Hx Diphtheria, Pertussis, Tetanus Vaccination: Yes Review of Systems - Review of Systems Female Genitourinary: See HPI, Other - vaginal irritation, vaginal bleeding Physical Exam - Vital signs Vitals: Temp Pulse Resp BP Pulse Ox 98.5 F 89 16 132/85 H 97 06/28/17 09:05 06/28/17 09:05 06/28/17 09:05 06/28/17 09:05 06/28/17 09:05 - Respiratory Respiratory status: No respiratory distress Chest status: Nontender Breath sounds: Normal Chest palpation: Normal - Cardiovascular Rhythm: Regular Heart sounds: Normal auscultation Murmur: No Course - Vital Signs Vital signs: Temp Pulse Resp BP Pulse Ox 98.5 F 89 16 132/85 H 97 06/28/17 09:05 06/28/17 09:05 06/28/17 09:05 06/28/17 09:05 06/28/17 09:05 Scribe Documentation - Scribe Written by Anny:: Anny Oakley, 06/28/2017 0949 acting as scribe for :: Fred
[2017-06-28 10:17] LABS: APPEARANCE,URINE CLOUDY; BILIRUBIN,URINE NEGATIVE (NEGATIVE); COLOR,URINE YELLOW; GLUCOSE, URINE >=500 mg/dL (NEGATIVE); KETONES,URINE NEGATIVE (NEGATIVE); LEUKOCYTE ESTERASE,URINE NEGATIVE (NEGATIVE); NITRITE,URINE NEGATIVE (NEGATIVE); PROTEIN,URINE NEGATIVE (NEGATIVE); URINE SPECIFIC GRAVITY 1.027; UROBILINOGEN,URINE NEGATIVE mg/dL (<2.0)
[2017-06-28] MEDS ORDERED: OXYCODONE-ACETAMINOPHEN 5-325 MG TABLET PO ONE (11:25)
--- NOTE | 2017-06-28 11:32 | ER Document Report ---
ED General - General Chief Complaint: Vaginal Pain Stated Complaint: VAGINAL PAIN Time Seen by Provider: 06/28/17 09:30 Mode of Arrival: Ambulatory Notes: Patient presents to the emergency department with complaints of vaginal pain when she voids. She reports it does not hurt to void but hurts when she voids AND the urine touches her vaginal area. Reports history of herpes. Denies fever vomiting reports a little bit of diarrhea. Denies urgency or frequency. TRAVEL OUTSIDE OF THE [place] IN LAST 30 DAYS: No - HPI Onset: Yesterday Onset/Duration: Persistent Quality of pain: Burning Severity: Severe Pain Level: 5 Associated symptoms: None Exacerbated by: Denies Relieved by: Denies Similar symptoms previously: Yes Recently seen / treated by doctor: No - Related Data Allergies/Adverse Reactions: No Known Allergies Allergy (Verified 11/20/16 11:02) Past Medical History - General Information source: Patient, [facility] Records Last Menstrual Period: 06/18/17 - Social History Smoking Status: Current Every Day Smoker Chew tobacco use (# tins/day): No Frequency of alcohol use: None Drug Abuse: None Occupation: [employer] Family History: Reviewed & Not Pertinent Patient has suicidal ideation: No Patient has homicidal ideation: No Pulmonary Medical History: Reports: Hx Asthma, Hx Bronchitis Endocrine Medical History: Reports: Hx Diabetes Mellitus Type 1, Hx Diabetes Mellitus Type 2 Renal/ Medical History: Reports: Other - Herpes. Denies: Hx Peritoneal Dialysis Past Surgical History: Reports: Hx Section, Hx Orthopedic Surgery - back surgery, Hx Tonsillectomy, Hx Tubal Ligation - Immunizations Immunizations up to date: Yes Hx Diphtheria, Pertussis, Tetanus Vaccination: Yes Review of Systems - Review of Systems Notes: Review HPI for review of systems., All other systems negative Physical Exam - Vital signs Vitals: Temp Pulse Resp BP Pulse Ox 98.5 F 89 16 132/85 H 97 06/28/17 09:05 06/28/17 09:05 06/28/17 09:05 06/28/17 09:05 06/28/17 09:05 - Notes Notes: PHYSICAL EXAMINATION: GENERAL: Well-appearing TEARFUL HEAD: Atraumatic, normocephalic. EYES: Pupils equal round and reactive to light, extraocular movements intact, sclera anicteric, conjunctiva are normal. ENT: nares patent, oropharynx clear without exudates. Moist mucous membranes. NECK: Normal range of motion, supple without lymphadenopathy LUNGS: CTAB and equal. No wheezes rales or rhonchi. HEART: Regular rate and rhythm without murmurs ABDOMEN: Soft, no tenderness. No guarding, no rebound EXTREMITIES: Normal range of motion, no pitting edema. No cyanosis. NEUROLOGICAL: Cranial nerves grossly intact. Normal sensory/motor exams. PSYCH: Normal mood, normal affect. SKIN: Warm, Dry, normal turgor, no rashes or lesions noted - Genitourinary External exam: Lesions - RIGHT LABIA MINORA Speculum exam: No: Vaginal discharge Vaginal bleeding: None Bimanuel exam: Normal Course - Re-evaluation Re-evalutation: 06/28/17 genital exam notes herpes flare. pt treated with percocet. she reports this helped relieve her pain. discussed medication, importance of fu with radio host. wet mount neg. 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 - Discharge Clinical Impression: Vaginal pain Herpes genitalia Qualifiers: Herpes simplex infection site: unspecified Qualified Code(s): A60.00 - Herpesviral infection of urogenital system, unspecified Condition: Stable Disposition: HOME, SELF-CARE Instructions: Acyclovir ([facility]), Genital Herpes ([facility]), Oral Narcotic Medication ( [facility]) Additional Instructions: *You have been evaluated for vaginal discharge, herpes *Take medication as prescribed *Follow up with your OIL RIG DRILLER or the health department for recheck within one week *Avoid sexual intercourse until follow up *Return to ED for worsening condition, changes, needs Prescriptions: Acyclovir [Acyclovir 400 mg Tablet] 400 mg PO TID #30 tablet Oxycodone HCl/Acetaminophen [Percocet 5-325 mg Tablet] 1 - 2 tab PO ASDIR PRN # 15 tablet PRN Reason: Forms: Elevated Blood Pressure, Return to Work
[2017-06-28 11:36] LABS: RBCS (WET MOUNT) RARE RBCS SEEN; T.VAGINALIS (WET MOUNT) NO TRICHOMONAS SEEN; WBCS (WET MOUNT) RARE WBCS SEEN; YEAST (WET MOUNT) NO YEAST SEEN
[2017-06-28 13:01] LABS: CHLAM PCR NOT DETECTED (NOT DETECT); GON PCR NOT DETECTED (NOT DETECT)
[2017-06-28 13:30] VITALS: BP 114/75
== END 2017-06-28 13:30 | disposition home or self-care (01) ==
LOC: ER 09:00
DX: A60.00 Herpesviral infection of urogenital system, unspecified (principal); R10.2 Pelvic and perineal pain; R30.9 Painful micturition, unspecified; F17.200 Nicotine dependence, unspecified, uncomplicated
CPT/HCPCS: 81001; 81025; 87210; 87250; 87491; 87591; 99283

== ENCOUNTER 2017-09-12 09:47 | Emergency (ER) | payer MEDICAID ==
[2017-09-12] MEDS ORDERED: CLINDAMYCIN HCL 150 MG CAPSULE PO ONE (10:31)
[2017-09-12] MEDS ORDERED: CEFTRIAXONE INJ 250 MG VIAL IM ONE (10:31)
[2017-09-12] MEDS ORDERED: LIDOCAINE 1% INJ-PF (10 MG/ML) 30 ML SDV INJ ONE (10:31)
[2017-09-12] MEDS ORDERED: IBUPROFEN 800 MG TABLET PO ONE (10:31)
[2017-09-12] MEDS ORDERED: AZITHROMYCIN 250 MG TABLET PO ONE (10:31)
[2017-09-12] MEDS ORDERED: LIDOCAINE 2% VISCOUS SOLN 20 ML UDCUP PO ONE (10:32)
--- NOTE | 2017-09-12 10:33 | ER Document Report ---
ED General - General Chief Complaint: Facial Swelling Stated Complaint: SKIN PROBLEM Time Seen by Provider: 09/12/17 10:20 Mode of Arrival: Ambulatory Information source: Patient Notes: 32-year-old female was presented to ED for complaint of infection to the face. She states she also has a dental pain from an infected tooth. She states she has been having symptoms of pain and fever off and on for 3 days. She has pain to tooth #17 and a small scabbed over sore with redness surrounding scab on the left front of her face. There is very minimal swelling to the area. She does not have any fevers or chills at this time. She is alert and oriented able to speak in full sentences. After discussing the care for her states she started talking about the fact that she had vaginal discharge and discomfort and thought she might have a yeast infection. She requested STD checks be done also. TRAVEL OUTSIDE OF THE [place] IN LAST 30 DAYS: No - HPI Onset: Other Onset/Duration: Gradual - 2-3 days Quality of pain: Pressure, Sharp Severity: Moderate Pain Level: 3 Associated symptoms: Other - Dental pain the swelling to the left side of her face as well as vaginal discharge and discomfort Exacerbated by: Other - Moving her face or moving her lip Relieved by: Denies - is painful Similar symptoms previously: Yes Recently seen / treated by doctor: No - Related Data Allergies/Adverse Reactions: No Known Allergies Allergy (Verified 09/12/17 09:57) Past Medical History - General Information source: Patient - Social History Smoking Status: Current Every Day Smoker Cigarette use (# per day): Yes Chew tobacco use (# tins/day): No Smoking Education Provided: Yes - 4 minutes Frequency of alcohol use: None Drug Abuse: None Occupation: [employer] Family History: Reviewed & Not Pertinent Patient has suicidal ideation: No Patient has homicidal ideation: No - Past Medical History Cardiac Medical History: Reports: None Pulmonary Medical History: Reports: Hx Asthma, Hx Bronchitis EENT Medical History: Reports: None Neurological Medical History: Reports: None Endocrine Medical History: Reports: Hx Diabetes Mellitus Type 2 Renal/ Medical History: Reports: None Malignancy Medical History: Reports: None GI Medical History: Reports: None Musculoskeltal Medical History: Reports None Skin Medical History: Reports None Psychiatric Medical History: Reports: None Traumatic Medical History: Reports: None Infectious Medical History: Reports: None Past Surgical History: Reports: Hx Section, Hx Orthopedic Surgery - back surgery, Hx Tonsillectomy, Hx Tubal Ligation - Immunizations Immunizations up to date: Yes Hx Diphtheria, Pertussis, Tetanus Vaccination: Yes Review of Systems - Review of Systems Constitutional: Recent illness EENT: Mouth pain, Mouth swelling, Dental problem Cardiovascular: No symptoms reported Respiratory: No symptoms reported Gastrointestinal: No symptoms reported Genitourinary: No symptoms reported Female Genitourinary: Vaginal discharge, Other Musculoskeletal: No symptoms reported Skin: No symptoms reported Hematologic/Lymphatic: No symptoms reported Neurological/Psychological: No symptoms reported -: Yes All other systems reviewed and negative Physical Exam - Vital signs Vitals: Temp Pulse Resp BP Pulse Ox 98.1 F 75 16 120/86 H 98 09/12/17 13:15 09/12/17 13:15 09/12/17 13:15 09/12/17 13:15 09/12/17 13:15 Interpretation: Normal - General General appearance: Appears well, Alert - HEENT Head: Normocephalic, Atraumatic Eyes: Normal Pupils: PERRL Ears: Normal External canal: Normal Tympanic membrane: Normal Sinus: Normal Nasal: Normal Mouth/Lips: Caries, Lesions - Just below her left lower lip with a scab where she has scratched it Mucous membranes: Normal Pharynx: Normal Neck: Normal - Respiratory Respiratory status: No respiratory distress Chest status: Nontender Breath sounds: Normal Chest palpation: Normal - Cardiovascular Rhythm: Regular Heart sounds: Normal auscultation Murmur: No - Abdominal Inspection: Normal Distension: No distension Bowel sounds: Normal Tenderness: Nontender Organomegaly: No organomegaly - Back Back: Normal, Nontender - Extremities General upper extremity: Normal inspection, Nontender, Normal color, Normal ROM , Normal temperature General lower extremity: Normal inspection, Nontender, Normal color, Normal ROM , Normal temperature, Normal weight bearing. No: Caridad's sign - Neurological Neuro grossly intact: Yes Cognition: Normal Orientation: AAOx4 Hilliards Coma Scale Eye Opening: Spontaneous Hilliards Coma Scale Verbal: Oriented Hilliards Coma Scale Motor: Obeys Commands Rosendo Coma Scale Total: 15 Speech: Normal Motor strength normal: LUE, RUE, LLE, RLE Sensory: Normal - Psychological Associated symptoms: Normal affect, Normal mood - Skin Skin Temperature: Warm Skin Moisture: Dry Skin Color: Normal Course - Re-evaluation Re-evalutation: 09/12/17 22:43 Patient was treated with viscous lidocaine and clindamycin for the sore on her face and her dental infections, Rocephin and azithromycin for the vaginitis, Flagyl for her bacterial vaginosis, and she was written a prescription for Diflucan to take in 10 days when she is finished all of her antibiotics. Patient was discharged home with prescription for Flagyl and Diflucan. Patient is able to verbalize understanding of instructions - Vital Signs Vital signs: Temp Pulse Resp BP Pulse Ox 98.1 F 75 16 120/86 H 98 09/12/17 13:15 09/12/17 13:15 09/12/17 13:15 09/12/17 13:15 09/12/17 13:15 Discharge - Discharge Clinical Impression: Pain due to dental caries Vaginitis Qualifiers: Chronicity: acute Qualified Code(s): N76.0 - Acute vaginitis Condition: Stable Disposition: HOME, SELF-CARE Instructions: Epsom Salt Soaks ([facility]) Additional Instructions: TOOTHACHE: Your pain is due to dental decay. The tooth must be repaired in order for you to feel better. You will, therefore, be referred to a dentist. We do not have dentists on the staff at [facility]. Severe swelling or drainage around a tooth usually means a dental abscess. This also requires evaluation and treatment by the dentist, but antibiotics may be prescribed while awaiting dental treatment. You should be rechecked immediately if you develop major swelling of the face, increasing pain, a lump in the jaw or gums, headache, difficulty swallowing, or fever. VAGINITIS: Your exam shows that you have vaginitis, a vaginal infection. The infection can be caused by a many different organisms, including trichomonas or Gardnerella. The usual symptoms are vaginal irritation and discharge. The treatment is usually antibiotics such as Flagyl. Laboratory tests can determine which germ is responsible. Use the medication as prescribed. Because this infection can be transmitted sexually, your sexual partner may need to be checked and treated also. If your physician has not discussed this with you, please check before resuming sexual relations. If a culture shows gonorrhea or chlamydia, the infection must be reported to the health department. Call the doctor if you develop pelvic pain, fever, or problems with urination, or if you don't improve as expected. VAGINOSIS, BACTERIAL: Your exam shows you have bacterial vaginosis. This condition is due to an overgrowth of bacteria in the vagina. Symptoms may include vaginal itching or pain, a smelly discharge, and sometimes burning with urination. Normally this is not transmitted by sexual contact. Vaginosis can be treated with oral or topical antibiotics. Metronidazole ( Flagyl) pills are usually effective. Topical vaginal creams include Cleocin and Metro-Gel. You should avoid sexual contact until your symptoms are all better. Call the doctor if you develop pelvic pain, fever, or problems with urination, or if you don't improve as expected. SORE THROAT: Sore throats may be caused by viruses, bacteria, or fungi. Most are due to a virus, and must get better on their own. Bacterial sore throats, particularly those due to "strep," need treatment with antibiotics. If an antibiotic is prescribed, be sure to take the medication for a full 10 days. Failure to take the antibiotic can result in complications such as rheumatic fever. Sometimes, an injection of antibiotics is given instead of pills or liquid. This single "shot" is equal in effectiveness to the oral medication. To relieve symptoms, take acetaminophen for pain. Sip clear liquids frequently, or eat popsicles or ice chips. Anesthetic sprays or lozenges may help. Make sure the air in the room is not too dry. Avoid using decongestants or antihistamines. Call the doctor if there is no improvement in two days, or if you have difficulty breathing, increasing throat pain, high fever, rash, or frequent vomiting. CEPHALOSPORINS: An antibiotic of the cephalosporin class has been prescribed. This type of antibiotic covers a wide variety of infections, including those of the skin, lungs, middle ear, and urinary tract. This antibiotic is somewhat similar to the penicillin family. In rare cases , a person who is allergic to penicillin will also be allergic to this medication. If you have had a severe allergic reaction to penicillin, and have not taken this antibiotic since that time, notify your doctor. Antibiotics which cover many germs ("broad spectrum" antibiotics) are more likely to cause diarrhea or "yeast" infections. Women prone to vaginal yeast problems may suffer an attack after taking this antibiotic. In infants, oral thrush (white spots "stuck" on the cheek) or yeast diaper rash may result. See your doctor if these problems occur. Call the doctor at once if you develop hives, itching, shortness of breath , or lightheadedness. AZITHROMYCIN: Azithromycin (Zithromax) is a broad spectrum antibiotic in the same class as erythromycin. It can treat a variety of bacterial infections, but is most frequently used for respiratory infections. Azithromycin is extremely long-lasting. It accumulates in body tissues and continues to kill bacteria for many days. In order to improve absorption, Azithromycin should be taken at least one hour before or two hours after a meal. It does not have the same strong tendency to upset the stomach as erythromycin and is usually very well tolerated. Patients who have had a rash or other true allergic reactions to erythromycin should not take this medication. Call if you develop gastrointestinal distress, severe diarrhea, rash, hives, itching, or shortness of breath. METRONIDAZOLE: Metronidazole (Flagyl) has been prescribed. This medication is used to kill a type of bacteria called anaerobes, and protozoan parasites such as trichomonas and Giardia. Flagyl often causes a metallic taste in the mouth and mild nausea. Do not use alcohol in any form with Flagyl (including alcohol in medication elixirs). Flagyl interacts with alcohol to cause flushing, palpitations, headache, stomach cramps, and vomiting. Do not use Flagyl if you are taking Antabuse (disulfiram). Call the doctor at once if you develop rash, shortness of breath, itching, or lightheadedness. CLINDAMYCIN: You have been given a prescription for the antibiotic clindamycin. It is often prescribed for infections in the mouth, such as dental infections or abscesses, and for skin infections due to MRSA. It's important that you take all the medication, unless instructed otherwise by your physician. Failure to complete the entire course can result in relapse of your condition. Common side effects of antibiotics include nausea, intestinal cramping, or diarrhea. Women may develop vaginal yeast infections, and babies can get yeast (thrush) in the mouth following the use of antibiotics. Contact your physician if you develop significant side effects from this medication. Allergy to this antibiotic can result in hives, wheezing, faintness, or itching. If symptoms of allergy occur, stop the medication and call the doctor. FOLLOW-UP CARE: You have been referred for follow-up care to the dentists listed below. Call the dentists office for an appointment as you were instructed or within the next two days. If you experience worsening or a significant change in your symptoms, notify the physician immediately or return to the Emergency Department at any time for re-evaluation. [facility] [address] [place], [place] Alli mornings, by appointment [facility] [address] [place] [address] [facility] [address] [facility] [address] [facility] [address] [email or web address] [address] [place] [address] Friday- 8:00am to 5:00 pm Will see [facility] from other [facility]. Charges based on income and family size and accepts Medicare, Medicaid, and Insurances Will pull molars [facility] [id number] Hours of Operation 8:00 am - 4:30 pm weekdays The following dental offices accept Medicaid: [facility] Dr. Min [address] Stearns Dr. Shi [address] Kaleb Mar Lutsavage, and [place] [facility] Dr. Garber ([place]) Dr. Manjarrez ([place]) [facility] Drs. Forbes and Jerrod ([place]) Dr. Diaz ([place]) [facility] Dr. Kirby ([place]) Drs. Pedroza and ([place]) Medicaid Care Line Prescriptions: Ibuprofen 600 mg PO Q8HP PRN #20 tablet PRN Reason: Clindamycin HCl 300 mg PO TID #30 capsule Fluconazole [Diflucan] 150 mg PO ONCE PRN #1 tablet PRN Reason: Metronidazole [Flagyl 500 mg Tablet] 500 mg PO BID #14 tablet Forms: Return to Work, Elevated Blood Pressure, Smoking Cessation Education Referrals: SATYA PONCE MD [Primary Care Provider] - Follow up as needed
[2017-09-12 10:43] LABS: T.VAGINALIS (WET MOUNT) NO TRICHOMONAS SEEN; YEAST (WET MOUNT) NO YEAST SEEN
[2017-09-12 10:44] LABS: BACTERIA (WET MOUNT) 3+ BACTERIA SEEN; EPITHELIALS (WET MOUNT) 3+ EPITHELIALS SEEN; RBCS (WET MOUNT) 1+ RBCS SEEN; WBCS (WET MOUNT) 2+ WBCS SEEN
[2017-09-12 12:10] LABS: CHLAM PCR NOT DETECTED (NOT DETECT); GON PCR NOT DETECTED (NOT DETECT)
[2017-09-12] MEDS ORDERED: METRONIDAZOLE 500 MG TABLET PO ONE (12:44)
[2017-09-12 13:17] VITALS: BP 120/86
== END 2017-09-12 13:15 | disposition home or self-care (01) ==
LOC: ER 09:47
DX: K02.9 Dental caries, unspecified (principal); N76.0 Acute vaginitis; R22.0 Localized swelling, mass and lump, head; F17.210 Nicotine dependence, cigarettes, uncomplicated; E11.9 Type 2 diabetes mellitus without complications; Z98.51 Tubal ligation status
CPT/HCPCS: 99406; 99283; 96372; 87070; 87210; 87880; 87491; 87591; Q0144; J3490 ×5; J0696

== ENCOUNTER 2018-03-07 12:44 | Emergency (ER) | payer MEDICAID ==
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
[2018-03-07 14:12] VITALS: BP 120/79
== END 2018-03-07 14:19 | disposition home or self-care (01) ==
LOC: ER 12:44
DX: L01.00 Impetigo, unspecified (principal); J45.909 Unspecified asthma, uncomplicated; E11.9 Type 2 diabetes mellitus without complications; F17.210 Nicotine dependence, cigarettes, uncomplicated
CPT/HCPCS: 99283

== ENCOUNTER 2018-04-02 10:39 | Inpatient (IN) | payer MEDICAID ==
[2018-04-02] MEDS ORDERED: IPRATROPIUM/ALBUTEROL 0.5-2.5 MG/3 ML AMPUL NEB ONE ×2 (11:09→17:24)
[2018-04-02] MEDS ORDERED: MAGNESIUM SULFATE/D5W 1 GM/100 ML RTUPB IV ONE (11:09)
--- NOTE | 2018-04-02 11:10 | ER Document Report ---
ED Respiratory Problem - General Mode of Arrival: Ambulatory Information source: Patient TRAVEL OUTSIDE OF THE [place] IN LAST 30 DAYS: No <FILOMENA LESTER - Last Filed: 04/02/18 11:05> <KVNG KNOX - Last Filed: 04/02/18 16:12> - General Chief Complaint: Shortness Of Breath Stated Complaint: BREATHING DIFFICULTY Time Seen by Provider: 04/02/18 10:57 Notes: 32-year-old female who presents to the emergency department today with complaints of shortness of breath for the last 2 days. Patient states she got much worse today. Patient states she has at home inhalers which she just ran out of and nebulizer treatments as well at home. Patient states she took 6 nebulizer treatments prior to arrival and she was given 1 Solu-Medrol and 2 breathing treatments by EMS prior to arrival here. Patient states she has been having problems with insurance so she currently is only taking x1000 milligrams of metformin BID for her DM. Patient states she did not take her metformin today. Patient smokes 1/2 pack of cigarettes per day. (FILOMENA LESTER) - Related Data Allergies/Adverse Reactions: No Known Allergies Allergy (Verified 03/07/18 12:45) Past Medical History - General Information source: Patient - Social History Smoking Status: Smoker,Current Status Unk Chew tobacco use (# tins/day): No Frequency of alcohol use: None Drug Abuse: None Lives with: Family Family History: Reviewed & Not Pertinent Patient has suicidal ideation: No Patient has homicidal ideation: No Pulmonary Medical History: Reports: Hx Asthma, Hx Bronchitis Endocrine Medical History: Reports: Hx Diabetes Mellitus Type 1, Hx Diabetes Mellitus Type 2 Past Surgical History: Reports: Hx Section, Hx Orthopedic Surgery - back surgery, Hx Tonsillectomy, Hx Tubal Ligation - Immunizations Immunizations up to date: Yes Hx Diphtheria, Pertussis, Tetanus Vaccination: Yes <FLIOMENA LESTER - Last Filed: 04/02/18 11:05> Review of Systems - Review of Systems Constitutional: No symptoms reported EENT: No symptoms reported Cardiovascular: No symptoms reported Respiratory: See HPI, Short of breath, Wheezing Gastrointestinal: No symptoms reported Genitourinary: No symptoms reported Female Genitourinary: No symptoms reported Musculoskeletal: No symptoms reported Skin: No symptoms reported Hematologic/Lymphatic: No symptoms reported Neurological/Psychological: No symptoms reported -: Yes All other systems reviewed and negative <FILOMENA LESTER - Last Filed: 04/02/18 11:05> Physical Exam <TREVONFILOMENA - Last Filed: 04/02/18 11:05> <KVNG KNOX - Last Filed: 04/02/18 16:12> - Vital signs Vitals: Resp Pulse Ox 19 92 04/02/18 10:49 04/02/18 10:49 - Notes Notes: Physical Exam: General: Alert, appears well. HEENT: Normocephalic. Atraumatic. PERRL. Extraocular movements intact. Oropharynx clear. Neck: Supple. Non-tender. Respiratory: Minimal respiratory distress. Wheezing bilaterally, right > left. Prolonged expiratory phase on the right. Cardiovascular: Regular rate and rhythm. Abdominal: Normal Inspection. Non-tender. No distension. Normal Bowel Sounds. Back: Non-tender. No deformity or step off. Extremities: Moves all four extremities. Upper extremities: Normal inspection. Normal ROM. Lower extremities: Normal inspection. No edema. Normal ROM. Neurological: Normal cognition. AAOx4. Normal speech. Psychological: Normal affect. Normal Mood. Skin: Warm. Dry. Normal color. (FILOMENA LESTER) Course - Laboratory Result Diagrams: 04/02/18 10:45 04/02/18 10:45 - Diagnostic Test Radiology reviewed: Image reviewed, Reports reviewed - Chest x-ray does not show any acute disease <KVNG KNOX - Last Filed: 04/02/18 16:12> - Vital Signs Vital signs: Temp Pulse Resp BP Pulse Ox 98.4 F 36 H 115/75 91 L 04/02/18 11:00 04/02/18 15:01 04/02/18 15:00 04/02/18 15:01 - Laboratory Laboratory results interpreted by me: 04/02/18 04/02/18 04/02/18 10:45 10:45 10:45 WBC 14.3 H RDW 16.8 H Seg Neutrophils % 81.4 H Lymphocytes % 11.0 L Absolute Neutrophils 11.6 H BUN 5 L Glucose 293 H POC Glucose Hemoglobin A1c % 10.4 H Urine Glucose (UA) Urine Ketones Urine Blood 04/02/18 04/02/18 14:18 14:25 WBC RDW Seg Neutrophils % Lymphocytes % Absolute Neutrophils BUN Glucose POC Glucose 378 H Hemoglobin A1c % Urine Glucose (UA) >=500 H Urine Ketones 20 H Urine Blood MODERATE H Critical Care Note - Critical Care Note Total time excluding time spent on procedures (mins): 40 <KVNG KNOX - Last Filed: 04/02/18 16:12> Discharge <FILOMENA LESTER - Last Filed: 04/02/18 11:05> - Discharge Admitting Provider: Hospitalist Unit Admitted: Medical Floor <KVNG KNOX - Last Filed: 04/02/18 16:12> - Discharge Clinical Impression: Acute exacerbation of extrinsic asthma, Poorly controlled diabetes mellitus Condition: Stable Disposition: ADMITTED INPATIENT Referrals: SATYA PONCE MD [Primary Care Provider] - Follow up as needed Scribe Attestation: 04/02/18 11:51 I personally performed the services described in the documentation, reviewed and edited the documentation which was dictated to the scribe in my presence, and it accurately records my words and actions. (KVNG KNOX) Scribe Documentation - Scribe Written by Bricee:: Anny Oakley, 04/02/2018 1110 acting as scribe for :: Drew <FILOMENA LESTER - Last Filed: 04/02/18 11:05>
[2018-04-02] MEDS ORDERED: MAGNESIUM SULFATE/D5W 0 GM/0 ML RTUPB IV ONE (11:12)
[2018-04-02 11:37] LABS: ABSOLUTE BASOPHILS # (AUTO) 0.1 10^3/uL (0.0-0.2); ABSOLUTE EOSINOPHILS # (AUTO) 0.2 10^3/uL (0.0-0.6); ABSOLUTE LYMPHOCYTES (AUTO) 1.6 10^3/uL (0.5-4.7); ABSOLUTE MONOCYTES (AUTO) 0.8 10^3/uL (0.1-1.4); ABSOLUTE NEUT (AUTO) 11.6 10^3/uL (1.7-8.2); BASOPHILS % (AUTO) 0.6 % (0-2); EOSINOPHILS % (AUTO) 1.5 % (0-6); HEMATOCRIT 37.6 % (36.0-47.0); HEMOGLOBIN 12.5 g/dL (12.0-15.5); MEAN CORPUSCULAR HEMOGLOBIN 29.6 pg (27.0-33.4); MEAN CORPUSCULAR HGB CONC 33.1 g/dL (32.0-36.0); MEAN CORPUSCULAR VOLUME 89 fl (80-97); MONOCYTES % (AUTO) 5.5 % (3-13); PLATELET COUNT 284 10^3/uL (150-450); RED CELL DISTRIBUTION WIDTH 16.8 % (11.5-14.0); SEGMENTED NEUTROPHILS % (AUTO) 81.4 % (42-78); TOTAL CELLS COUNTED % (AUTO) 100 %; WHITE BLOOD COUNT 14.3 10^3/uL (4.0-10.5)
[2018-04-02 11:46] LABS: ALBUMIN 4.3 g/dL (3.5-5.0); ANION GAP 16 (5-19); BLOOD UREA NITROGEN 5 mg/dL (7-20); CALCIUM 9.3 mg/dL (8.4-10.2); CARBON DIOXIDE 22 mmol/L (22-30); CHLORIDE 103 mmol/L (98-107); GLUCOSE 293 mg/dL (75-110); POTASSIUM 4.4 mmol/L (3.6-5.0); SODIUM 140.9 mmol/L (137-145); TOTAL PROTEIN 7.4 g/dL (6.3-8.2)
[2018-04-02 11:47] LABS: ALANINE AMINOTRANSFERASE 21 U/L (9-52); ALKALINE PHOSPHATASE 69 U/L (38-126); ASPARTATE AMINO TRANSFERASE 20 U/L (14-36); BILIRUBIN,DIRECT 0.3 mg/dL (0.0-0.4); BILIRUBIN,TOTAL 0.8 mg/dL (0.2-1.3)
[2018-04-02] MEDS ORDERED: INSULIN REG, HUMAN 100 UNIT/ML 3 ML VIAL (PYX) IV ONE ×2 (11:51→14:35)
[2018-04-02] MEDS ORDERED: ALBUTEROL SULFATE 0.083% NEB 2.5 MG/3 ML AMPUL NEB ONE ×2 (12:43→14:35)
[2018-04-02 15:13] LABS: APPEARANCE,URINE CLEAR; BILIRUBIN,URINE NEGATIVE (NEGATIVE); COLOR,URINE YELLOW; GLUCOSE, URINE >=500 mg/dL (NEGATIVE); KETONES,URINE 20 mg/dL (NEGATIVE); LEUKOCYTE ESTERASE,URINE NEGATIVE (NEGATIVE); NITRITE,URINE NEGATIVE (NEGATIVE); PROTEIN,URINE NEGATIVE (NEGATIVE); URINE SPECIFIC GRAVITY 1.035; UROBILINOGEN,URINE NEGATIVE mg/dL (<2.0)
--- NOTE | 2018-04-02 16:05 | RADIOLOGY REPORT (SQ) ---
EXAM DESCRIPTION: CHEST SINGLE VIEW COMPLETED DATE/TIME: 04/02/2018 3:50 pm REASON FOR STUDY: Status asthma COMPARISON: Chest films 02/22/2013, 01/05/2015 EXAM PARAMETERS: NUMBER OF VIEWS: One view. TECHNIQUE: Single frontal radiographic view of the chest acquired. RADIATION DOSE: NA LIMITATIONS: None. FINDINGS: LUNGS AND PLEURA: No opacities, masses or pneumothorax. No pleural effusion. MEDIASTINUM AND HILAR STRUCTURES: No masses. Contour normal. HEART AND VASCULAR STRUCTURES: Heart normal in size. Normal vasculature. BONES: No acute findings. HARDWARE: None in the chest. OTHER: No other significant finding. IMPRESSION: NO ACUTE RADIOGRAPHIC FINDING IN THE CHEST. TECHNICAL DOCUMENTATION: JOB ID: [id number] [employer]- All Rights Reserved Reading location - IP/workstation name: [email or web address]
[2018-04-02] MEDS ORDERED: NORMAL SALINE 1000 ML 1,000 ML IV PRN (16:56)
[2018-04-02] MEDS ORDERED: MAGNESIUM HYDROXIDE SUSP 30 ML UDCUP PO PRN (16:56)
[2018-04-02] MEDS ORDERED: DEXTROSE 40% GEL 15 GM TUBE PO PRN ×2 (17:03)
[2018-04-02] MEDS ORDERED: DEXTROSE 50%-WATER 25 GM/50 ML DISP.SYRIN IV PRN ×2 (17:03)
[2018-04-02] MEDS ORDERED: GLUCAGON,HUMAN RECOMB 1 MG INJ IM PRN (17:03)
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
[2018-04-02] MEDS: IPRATROPIUM/ALBUTEROL 0.5-2.5 MG/3 ML AMPUL NEB PRN ×3 (17:27→23:36)
[2018-04-02] MEDS ORDERED: INSULIN REG, HUMAN 100 UNIT/ML 3 ML VIAL (PYX) ONE (18:31)
[2018-04-02] MEDS ORDERED: INSULIN REG, HUMAN 100 UNIT/ML 3 ML VIAL (PYX) SUBCUT ONE (18:49)
[2018-04-02] MEDS ORDERED: INSULIN LISPRO 100 UNIT/ML 3 ML VIAL SUBCUT ONE (19:00)
[2018-04-02] MEDS ORDERED: INSULIN GLARGINE,HUM.REC.ANLOG 1,000 UNIT/10 ML UNIT SUBCUT ONE (22:08)
[2018-04-02] MEDS: INSULIN GLARGINE,HUM.REC.ANLOG 300 UNIT/3 ML INSULN.PEN SUBCUT SCH (22:16)
[2018-04-02] MEDS: ACETAMINOPHEN 325 MG TABLET PO PRN (22:20)
[2018-04-02] MEDS: METHYLPREDNISOLONE INJ 40 MG/1 ML SDV IV SCH (22:21)
[2018-04-02] MEDS: ONDANSETRON HCL INJ/PF 4 MG/2 ML SDV IV PRN (23:55)
[2018-04-03 05:03] LABS: ABSOLUTE MONOCYTES (AUTO) 0.4 10^3/uL (0.1-1.4); ABSOLUTE NEUT (AUTO) 14.4 10^3/uL (1.7-8.2); BASOPHILS % (AUTO) 0.3 % (0-2); HEMATOCRIT 39.3 % (36.0-47.0); HEMOGLOBIN 12.9 g/dL (12.0-15.5); LYMPHOCYTES % (AUTO) 6.3 % (13-45); MEAN CORPUSCULAR HEMOGLOBIN 30.1 pg (27.0-33.4); MEAN CORPUSCULAR VOLUME 91 fl (80-97); MONOCYTES % (AUTO) 2.6 % (3-13); PLATELET COUNT 274 10^3/uL (150-450); SEGMENTED NEUTROPHILS % (AUTO) 90.8 % (42-78); TOTAL CELLS COUNTED % (AUTO) 100 %; WHITE BLOOD COUNT 15.8 10^3/uL (4.0-10.5)
[2018-04-03 05:30] LABS: ANION GAP 17 (5-19); BLOOD UREA NITROGEN 15 mg/dL (7-20); CALCIUM 9.5 mg/dL (8.4-10.2); CARBON DIOXIDE 22 mmol/L (22-30); CHLORIDE 102 mmol/L (98-107); GLUCOSE 308 mg/dL (75-110); PHOSPHORUS 3.6 mg/dL (2.5-4.5); POTASSIUM 4.7 mmol/L (3.6-5.0); SODIUM 141.2 mmol/L (137-145)
[2018-04-03] MEDS: METHYLPREDNISOLONE INJ 40 MG/1 ML SDV IV SCH ×3 (06:56→21:38)
[2018-04-03] MEDS: IPRATROPIUM/ALBUTEROL 0.5-2.5 MG/3 ML AMPUL NEB PRN ×4 (08:04→23:46)
[2018-04-03] MEDS: INSULIN LISPRO 100 UNIT/ML 3 ML VIAL SUBCUT ONE ×2 (11:00)
[2018-04-03] MEDS ORDERED: INSULIN GLARGINE,HUM.REC.ANLOG 1,000 UNIT/10 ML UNIT SUBCUT ONE (11:00)
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
[2018-04-03] MEDS ORDERED: NICOTINE 14 MG/24 HR PATCH.TD24 TD PRN (11:18)
[2018-04-03] MEDS ORDERED: AZITHROMYCIN INJ 500 MG VIAL IV SCH (13:00)
[2018-04-03] MEDS: INSULIN REG, HUMAN 100 UNIT/ML 3 ML VIAL (PYX) SUBCUT PRN ×3 (13:00→21:37)
[2018-04-03] MEDS ORDERED: AZITHROMYCIN 500 MG in DEXTROSE 5%-WATER 250 ML IV SCH (14:00)
[2018-04-03] MEDS: ACETAMINOPHEN 325 MG TABLET PO PRN (16:53)
[2018-04-03] MEDS ORDERED: KETOROLAC TROMETHAMINE INJ/PF 30 MG/1 ML SDV IV PRN (21:09)
[2018-04-03] MEDS: INSULIN GLARGINE,HUM.REC.ANLOG 300 UNIT/3 ML INSULN.PEN SUBCUT SCH (21:36)
[2018-04-03] MEDS: ONDANSETRON HCL INJ/PF 4 MG/2 ML SDV IV PRN (21:38)
[2018-04-03] MEDS ORDERED: INSULIN REG, HUMAN 100 UNIT/ML 3 ML VIAL (PYX) IV ONE (21:45)
[2018-04-04] MEDS: METHYLPREDNISOLONE INJ 40 MG/1 ML SDV IV SCH (05:40)
[2018-04-04] MEDS: IPRATROPIUM/ALBUTEROL 0.5-2.5 MG/3 ML AMPUL NEB PRN (07:54)
[2018-04-04] MEDS: INSULIN REG, HUMAN 100 UNIT/ML 3 ML VIAL (PYX) SUBCUT PRN (08:12)
[2018-04-04 09:12] VITALS: BP 109/62
[2018-04-04] MEDS ORDERED: PREDNISONE 20 MG TABLET PO SCH (10:00)
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
== END 2018-04-04 12:11 | disposition home or self-care (01) | DRG 203 ==
LOC: ER 10:39 → INTOOBSV 16:25 → EH 16:25 → OBSVTOIN 16:56 → 5 18:59
PROVIDERS: ADMIT Internal Medicine; ATTEND Internal Medicine
DX: J45.901 Unspecified asthma with (acute) exacerbation (principal); T38.3X6A Underdosing of insulin and oral hypoglycemic [antidiabetic] drugs, initial encounter; M54.5 Low back pain; E08.65 Diabetes mellitus due to underlying condition with hyperglycemia; F17.210 Nicotine dependence, cigarettes, uncomplicated; Z79.4 Long term (current) use of insulin; Z91.138 Patient's unintentional underdosing of medication regimen for other reason; Z83.3 Family history of diabetes mellitus; Z82.49 Family history of ischemic heart disease and other diseases of the circulatory system; Z80.3 Family history of malignant neoplasm of breast; Z65.5 Exposure to disaster, war and other hostilities
CPT/HCPCS: 36415; 71045; 80048; 80053; 81001; 82962; 83036; 83735; 84100; 84703; 85025; 94640; 96365; 99291; J0456; J1815; J1885; J2405; J2920; J3475; J7030; J7060; J7512; J7620

== ENCOUNTER 2018-06-25 10:32 | Emergency (ER) | payer MEDICAID ==
[2018-06-25 10:38] VITALS: BP 126/85
[2018-06-25] MEDS ORDERED: CEPHALEXIN 500 MG CAPSULE PO ONE (11:25)
--- NOTE | 2018-06-25 11:27 | ER Document Report ---
HPI - HPI Time Seen by Provider: 06/25/18 11:12 Onset: Last week Onset/Duration: Persistent, Worse Quality of pain: Achy Pain Level: 3 Context: Patient complains of skin rash to the face and anterior aspect of her neck for the past week. Patient denies any fever. Patient denies any history of MRSA. Associated Symptoms: denies: Fever Exacerbated by: Denies Relieved by: Denies Similar symptoms previously: Yes Recently seen / treated by doctor: No - ROS ROS below otherwise negative: Yes Systems Reviewed and Negative: Yes All other systems reviewed and negative - CONSTITUTIONAL Constitutional: DENIES: Fever, Chills - NEURO Neurology: DENIES: Headache - GASTROINTESTINAL Gastrointestinal: DENIES: Patient vomiting - REPRODUCTIVE Reproductive: DENIES: : - DERM Skin Problems: Rash Notes: Crusted skin lesion to neck Past Medical History - General Information source: Patient - Social History Smoking Status: Current Every Day Smoker Smoking Education Provided: Yes Frequency of alcohol use: None Drug Abuse: None Occupation: [employer] Family History: DM, Hypertension, Malignancy - Mother with breast cancer Pulmonary Medical History: Reports: Hx Asthma, Hx Bronchitis Endocrine Medical History: Reports: Hx Diabetes Mellitus Type 1, Hx Diabetes Mellitus Type 2 Renal/ Medical History: Denies: Hx Peritoneal Dialysis Musculoskeletal Medical History: Reports Other - Chronic back pain Past Surgical History: Reports: Hx Section, Hx Orthopedic Surgery - back surgery, Hx Tonsillectomy, Hx Tubal Ligation - Immunizations Immunizations up to date: Yes Hx Diphtheria, Pertussis, Tetanus Vaccination: Yes Vertical Provider Document - CONSTITUTIONAL Agree With Documented VS: Yes Exam Limitations: No Limitations General Appearance: WD/WN, No Apparent Distress - INFECTION CONTROL TRAVEL OUTSIDE OF THE [place] IN LAST 30 DAYS: No - HEENT HEENT: Atraumatic, Normocephalic - NECK Neck: Normal Inspection - RESPIRATORY Respiratory: Breath Sounds Normal, No Respiratory Distress - CARDIOVASCULAR Cardiovascular: Regular Rate, Regular Rhythm - BACK Back: Normal Inspection - MUSCULOSKELETAL/EXTREMETIES Musculoskeletal/Extremeties: AAYUSH MACEDO - NEURO Level of Consciousness: Awake, Alert, Appropriate Motor/Sensory: No Motor Deficit - DERM Integumentary: Warm, Dry, Rash - Scattered crusted lesions to face and anterior neck, lesion to neck about 1 cm diameter with surrounding erythema, no fluctuance, no concern for abscess. negative: Abscess Course - Vital Signs Vital signs: Temp Pulse Resp BP Pulse Ox 98.2 F 75 11 L 126/85 H 98 06/25/18 10:37 06/25/18 10:37 06/25/18 10:37 06/25/18 10:37 06/25/18 10:37 Discharge - Discharge Clinical Impression: Impetigo Condition: Stable Disposition: HOME, SELF-CARE Instructions: Bactroban Ointment ([facility]), Cephalexin ([facility]), Impetigo ([facility]) Additional Instructions: Return immediately for any new or worsening symptoms Followup with your primary care provider, call tomorrow to make a followup appointment Prescriptions: Cephalexin Monohydrate [Keflex 500 mg Capsule] 500 mg PO Q6H 7 Days capsule Mupirocin [Bactroban 2% Ointment 22 gm] 1 applic TP TID #22 gm Forms: Smoking Cessation Education, Return to Work Referrals: SATYA PONCE MD [Primary Care Provider] - Follow up as needed
== END 2018-06-25 11:34 | disposition home or self-care (01) ==
LOC: ER 10:32
DX: L01.00 Impetigo, unspecified (principal); R21 Rash and other nonspecific skin eruption; J45.909 Unspecified asthma, uncomplicated; E11.9 Type 2 diabetes mellitus without complications; F17.200 Nicotine dependence, unspecified, uncomplicated
CPT/HCPCS: 99282

== ENCOUNTER 2018-07-31 13:37 | Emergency (ER) | payer MEDICAID ==
[2018-07-31] MEDS ORDERED: IPRATROPIUM/ALBUTEROL 0.5-2.5 MG/3 ML AMPUL NEB ONE (15:29)
[2018-07-31] MEDS ORDERED: BUDESONIDE NEB 0.5 MG/2 ML AMPUL NEB ONE (15:30)
--- NOTE | 2018-07-31 15:33 | ER Document Report ---
ED General - General Chief Complaint: Shortness Of Breath Stated Complaint: COUGH,CONGESTION,SORE THROAT Time Seen by Provider: 07/31/18 15:22 Primary Care Provider: SATYA PONCE MD [Primary Care Provider] - Follow up in 3-5 days Notes: Patient is a 33-year-old female with asthma and diabetes that presents to the emergency department for chief complaint of shortness of breath and wheezing. Patient reports she is been having sinus congestion, and shortness of breath and wheezing over the past several days, she states it has been aggravated by her work, she works at the [employer], and is inhaling dust on a regular basis and she thinks that that is making it worse. She is had a mild sore throat associated with this. She has been able to eat and drink without issues. Denies having any chest pain or abdominal pain associated. She states she is been using her breathing treatments without much relief of her symptoms so she decided come to the emergency department today. She does report that she is diabetic, and her blood glucose numbers have been ranging from the high 200s- 300s, she does need to follow-up with her primary care to have her diabetes rechecked and insulin adjusted. Past Medical History: Asthma, diabetes mellitus, chronic low back pain Past Surgical History: Tonsillectomy, tubal ligation, back surgery Social History: Admits to smoking cigarettes daily, denies alcohol or drug use. Family History: Reviewed and noncontributory for presenting illness Allergies: Reviewed, see documented allergy list. REVIEW OF SYSTEMS: Other than noted above, the 12 point review of systems was reviewed with the patient and were negative, all pertinent findings are included in the HPI. PHYSICAL EXAMINATION: Vital signs reviewed, nursing noted reviewed. GENERAL: Well-appearing, well-nourished and in no acute distress. HEAD: Atraumatic, normocephalic. EYES: Eyes appear normal, extraocular movements intact, sclera anicteric, conjunctiva are normal. ENT: nares patent, oropharynx clear without exudates. Moist mucous membranes. NECK: Normal range of motion, supple without lymphadenopathy LUNGS: Bilateral expiratory wheezing noted throughout all lung griffin. HEART: Regular rate and rhythm without murmurs ABDOMEN: Soft, nontender, normoactive bowel sounds. No rebound, guarding, or rigidity. No masses appreciated. EXTREMITIES: Nontender, good range of motion, no pitting or edema. NEUROLOGICAL: No focal neurological deficits. Moves all extremities spontaneously Motor and sensory grossly intact on exam. PSYCH: Normal mood, normal affect. SKIN: Warm, Dry, normal turgor, no rashes or lesions noted on exposed skin TRAVEL OUTSIDE OF THE [place] IN LAST 30 DAYS: No - Related Data Allergies/Adverse Reactions: No Known Allergies Allergy (Verified 07/31/18 13:46) Past Medical History - Social History Smoking Status: Current Some Day Smoker Chew tobacco use (# tins/day): No Frequency of alcohol use: None Drug Abuse: None Family History: DM, Hypertension, Malignancy - Mother with breast cancer Patient has suicidal ideation: No Patient has homicidal ideation: No Pulmonary Medical History: Reports: Hx Asthma, Hx Bronchitis Endocrine Medical History: Reports: Hx Diabetes Mellitus Type 1, Hx Diabetes Mellitus Type 2 Renal/ Medical History: Denies: Hx Peritoneal Dialysis Past Surgical History: Reports: Hx Section, Hx Orthopedic Surgery - back surgery, Hx Tonsillectomy, Hx Tubal Ligation - Immunizations Immunizations up to date: Yes Hx Diphtheria, Pertussis, Tetanus Vaccination: Yes Physical Exam - Vital signs Vitals: Temp Pulse Resp BP Pulse Ox 98.7 F 83 16 116/72 97 07/31/18 14:00 07/31/18 14:00 07/31/18 14:00 07/31/18 14:00 07/31/18 14:00 Course - Re-evaluation Re-evalutation: Patient seen and examined vital signs reviewed. Laboratory data and imaging were ordered as appropriate for the patient's presenting symptoms and complaint, with consideration of any critical or life threatening conditions that may be associated with their obtained history and exam as noted above. Patient was treated with DuoNeb breathing treatments, and inhaled budesonide Results were reviewed when available and demonstrated negative chest x-ray The patient was re-evaluated and was improved Evaluation was most consistent with acute exacerbation of asthma, will provide prescription for inhaled budesonide, patient already has albuterol at home, avoiding systemic steroids given the patient has uncontrolled diabetes at this time, advised her to follow-up with her primary care closely Results were discussed with the patient at this point, after careful consideration I feel that that patient can be discharged from the emergency department, the patient was educated treatments and reasons to return to the emergency department based on their presumed diagnosis as noted above, they were advised to followup with a primary care physician in 2-3 days. Patient was agreeable to plan of care. *Note is created using voice recognition software and may contain spelling, syntax or grammatical errors. Chest X-Ray 07/31/18 00:00 IMPRESSION: NO ACUTE RADIOGRAPHIC FINDING IN THE CHEST. - Vital Signs Vital signs: Temp Pulse Resp BP Pulse Ox 98.7 F 87 16 125/84 100 07/31/18 17:00 07/31/18 17:00 07/31/18 17:00 07/31/18 17:00 07/31/18 17:00 Discharge - Discharge Clinical Impression: Asthma exacerbation Condition: Stable Disposition: HOME, SELF-CARE Instructions: Asthma ([facility]) Additional Instructions: Please use the inhaled budesonide twice daily for the next 7 days, you also need to use the albuterol, whether that is your inhaler, or breathing treatments, every 4 hours or at least 4 times a day for the next 5-7 days, if your symptoms are not improving in the next few days, do not hesitate to return to the emergency department to be further evaluated. Prescriptions: RX: Budesonide [Pulmicort Neb 0.5 mg/2 ml Ampul] 0.5 mg NEB BID #60 ampul.neb Fluticasone Propionate [Flonase Nasal [place] 50 Mcg/[place] 16 gm] 1 spray NASL Q12 #1 inhaler Forms: Return to Work Referrals: SATYA PONCE MD [Primary Care Provider] - Follow up in 3-5 days
--- NOTE | 2018-07-31 16:04 | RADIOLOGY REPORT (SQ) ---
EXAM DESCRIPTION: CHEST 2 VIEWS COMPLETED DATE/TIME: 07/31/2018 3:37 pm REASON FOR STUDY: wheezing COMPARISON: AP chest 04/02/2018 EXAM PARAMETERS: NUMBER OF VIEWS: two views TECHNIQUE: Digital Frontal and Lateral radiographic views of the chest acquired. RADIATION DOSE: NA LIMITATIONS: none FINDINGS: LUNGS AND PLEURA: No opacities, masses or pneumothorax. No pleural effusion. MEDIASTINUM AND HILAR STRUCTURES: No masses or contour abnormalities. HEART AND VASCULAR STRUCTURES: Heart normal size. No evidence for failure. BONES: No acute findings. HARDWARE: None in the chest. OTHER: No other significant finding. IMPRESSION: NO ACUTE RADIOGRAPHIC FINDING IN THE CHEST. TECHNICAL DOCUMENTATION: JOB ID: [id number] [employer]- All Rights Reserved Reading location - IP/workstation name: [email or web address]
[2018-07-31 17:00] VITALS: BP 125/84
== END 2018-07-31 17:05 | disposition home or self-care (01) ==
LOC: ER 13:37
DX: J45.901 Unspecified asthma with (acute) exacerbation (principal); F17.210 Nicotine dependence, cigarettes, uncomplicated; E11.9 Type 2 diabetes mellitus without complications; Z79.4 Long term (current) use of insulin; Z98.51 Tubal ligation status
CPT/HCPCS: 94640 ×2; 99285; 71046; J3490; J7620

== ENCOUNTER 2018-12-22 06:11 | Emergency (ER) | payer MEDICAID ==
[2018-12-22 06:16] VITALS: BP 140/97
--- NOTE | 2018-12-22 09:33 | ER Document Report ---
ED General - General Chief Complaint: Urinary Problem Stated Complaint: VAGINAL DISCOMFORT Time Seen by Provider: 12/22/18 09:11 Primary Care Provider: [facility] [Provider Group] - Follow up tomorrow Notes: Patient is a 33-year-old female with diabetes mellitus that presents to the emergency department for chief complaint of vaginal yeast infection. Patient states of the past few months she is been having recurrent vaginal yeast infections, was treated with Diflucan about 3 weeks ago, and states that it has come back. She is had irritation, and itching, nothing seems to make it much better. She has tried [id number] treatments without much improvement. She states that her insulin regimen includes 5 units with meals, and 28 units of Lantus at bedtime, but she has not been checking her blood sugars at home, and is not sure if her diabetes is all that controlled currently. She does have burning in the vaginal area with urination, but denies having actual pain or dysuria, denies hematuria. Denies any recent fevers, chills, night sweats, chest pain, shortness of breath, nausea, vomiting or abdominal pain. Past Medical History: Diabetes mellitus, insulin-dependent, asthma, diabetic neuropathy Past Surgical History: Back surgery, Social History: Admits to smoking cigarettes, denies alcohol or drug use. Family History: Reviewed and noncontributory for presenting illness Allergies: Reviewed, see documented allergy list. REVIEW OF SYSTEMS: Other than noted above, the 12 point review of systems was reviewed with the patient and were negative, all pertinent findings are included in the HPI. PHYSICAL EXAMINATION: Vital signs reviewed, nursing noted reviewed. GENERAL: Well-appearing, well-nourished and in no acute distress. HEAD: Atraumatic, normocephalic. EYES: Eyes appear normal, extraocular movements intact, sclera anicteric, conjunctiva are normal. ENT: nares patent, oropharynx clear without exudates. Moist mucous membranes. NECK: Normal range of motion, supple without lymphadenopathy LUNGS: Breath sounds clear to auscultation bilaterally and equal. No wheezes rales or rhonchi. HEART: Regular rate and rhythm without murmurs ABDOMEN: Soft, nontender, normoactive bowel sounds. No rebound, guarding, or rigidity. No masses appreciated. EXTREMITIES: Nontender, good range of motion, no pitting or edema. NEUROLOGICAL: No focal neurological deficits. Moves all extremities spontaneously Motor and sensory grossly intact on exam. PSYCH: Normal mood, normal affect. SKIN: Warm, Dry, normal turgor, no rashes or lesions noted on exposed skin TRAVEL OUTSIDE OF THE [place] IN LAST 30 DAYS: No - Related Data Allergies/Adverse Reactions: No Known Allergies Allergy (Verified 07/31/18 13:46) Past Medical History - General Last Menstrual Period: December 10 2018 - Social History Smoking Status: Current Every Day Smoker Frequency of alcohol use: None Drug Abuse: None, Marijuana Family History: DM, Hypertension, Malignancy - Mother with breast cancer Patient has suicidal ideation: No Patient has homicidal ideation: No Pulmonary Medical History: Reports: Hx Asthma, Hx Bronchitis Endocrine Medical History: Reports: Hx Diabetes Mellitus Type 1, Hx Diabetes Mellitus Type 2 Renal/ Medical History: Denies: Hx Peritoneal Dialysis Past Surgical History: Reports: Hx Section, Hx Orthopedic Surgery - back surgery, Hx Tonsillectomy, Hx Tubal Ligation - Immunizations Immunizations up to date: Yes Hx Diphtheria, Pertussis, Tetanus Vaccination: Yes Physical Exam - Vital signs Vitals: Temp Pulse Resp BP Pulse Ox 97.4 F 84 18 140/97 H 96 12/22/18 06:13 12/22/18 06:13 12/22/18 06:13 12/22/18 06:13 12/22/18 06:13 Course - Re-evaluation Re-evalutation: Patient seen and examined vital signs reviewed. Patient was evaluated and treated as appropriate for the patient's presenting symptoms and complaint, with consideration of any critical or life threatening conditions that may be associated with their obtained history and exam as noted above. Patient was treated with Diflucan and Tylenol for pain The patient was re-evaluated and was stable Evaluation was most consistent with vaginal candidiasis, and hyperglycemia, discussed the patient needs to be more compliant with her diabetes medications, and to discuss with her primary care to reduce the number of yeast infections, given additional 2 days of Diflucan. Plan of care was discussed with the patient at this point, after careful consideration I feel that that patient can be discharged from the emergency department, the patient was educated treatments and reasons to return to the emergency department based on their presumed diagnosis as noted above, they were advised to followup with a primary care physician in 2-3 days. Patient was agreeable to plan of care. *Note is created using voice recognition software and may contain spelling, syntax or grammatical errors. Laboratory 12/22/18 12/22/18 12/22/18 10:05 10:05 10:08 POC Glucose 267 H Urine Color YELLOW Urine Appearance SLIGHTLY-CLOUDY Urine pH 5.0 Ur Specific [place] 1.015 Urine Protein NEGATIVE Urine Glucose (UA) >=500 H Urine Ketones NEGATIVE Urine Blood NEGATIVE Urine Nitrite NEGATIVE Urine Bilirubin NEGATIVE Urine Urobilinogen NEGATIVE Ur Leukocyte Esterase NEGATIVE Urine WBC (Auto) 1 Squamous Epi Cells Auto 2 Urine Mucus (Auto) RARE Urine Ascorbic Acid NEGATIVE Urine HCG, Qual NEGATIVE - Vital Signs Vital signs: Temp Pulse Resp BP Pulse Ox 97.4 F 84 18 140/97 H 96 12/22/18 06:13 12/22/18 06:13 12/22/18 06:13 12/22/18 06:13 12/22/18 06:13 - Laboratory Laboratory results interpreted by me: 12/22/18 12/22/18 10:05 10:08 POC Glucose 267 H Urine Glucose (UA) >=500 H Discharge - Discharge Clinical Impression: Vaginal candidiasis Condition: Stable Disposition: HOME, SELF-CARE Instructions: Vaginal Yeast Infection ([facility]) Additional Instructions: Please follow-up with your primary care to discuss your insulin dosing, as he may need to go up, your blood sugar was nearly 300 today, which is likely causing recurrent yeast infections, you may take the Diflucan for additional 2 more doses, starting tomorrow. For irritation to the skin in the vaginal area, you should apply a barrier ointment such as A and D ointment. Prescriptions: Fluconazole [Diflucan] 150 mg PO DAILY #2 tablet Referrals: [facility] [Provider Group] - Follow up tomorrow
[2018-12-22] MEDS ORDERED: ACETAMINOPHEN 325 MG TABLET PO ONE (10:18)
[2018-12-22 10:34] LABS: APPEARANCE,URINE SLIGHTLY-CLOUDY; BILIRUBIN,URINE NEGATIVE (NEGATIVE); COLOR,URINE YELLOW; GLUCOSE, URINE >=500 mg/dL (NEGATIVE); KETONES,URINE NEGATIVE (NEGATIVE); LEUKOCYTE ESTERASE,URINE NEGATIVE (NEGATIVE); NITRITE,URINE NEGATIVE (NEGATIVE); PROTEIN,URINE NEGATIVE (NEGATIVE); URINE SPECIFIC GRAVITY 1.015; UROBILINOGEN,URINE NEGATIVE mg/dL (<2.0)
[2018-12-22] MEDS ORDERED: FLUCONAZOLE 100 MG TABLET PO ONE (10:36)
== END 2018-12-22 12:13 | disposition home or self-care (01) ==
LOC: ER 06:11
DX: B37.3 Candidiasis of vulva and vagina (principal); E11.65 Type 2 diabetes mellitus with hyperglycemia; E11.40 Type 2 diabetes mellitus with diabetic neuropathy, unspecified; Z79.4 Long term (current) use of insulin; J45.909 Unspecified asthma, uncomplicated; F17.210 Nicotine dependence, cigarettes, uncomplicated
CPT/HCPCS: 99283; 87086; 82962; 81025; 81001; J3490

== ENCOUNTER 2019-01-31 04:09 | Emergency (ER) | payer MEDICAID ==
--- NOTE | 2019-01-31 08:13 | ER Document Report ---
ED General - General Chief Complaint: High Blood Sugar Stated Complaint: REPORTS HIGH BLOOD SUGAR Time Seen by Provider: 01/31/19 08:09 TRAVEL OUTSIDE OF THE [place] IN LAST 30 DAYS: No - HPI Notes: 33-year-old female to the emergency department with complaints of elevated blood sugar as well as possible yeast infection and a rash to her face that has been ongoing for almost a year. She states that her sugars been high for the past week. She is a type 2 insulin-dependent diabetic. She is supposed to be taking Lantus 28 units at night and Humulin with meals. She states that she has not been taking her insulin for the past week. She states "it was a hectic week". She states that she has been having vaginal itching and a white discharge and so she is concerned that because her sugars been running high that she has a yeast infection. She also states that she has a rash to her face that comes and goes for the past year she says the area is draining pus. She denies any fevers, chills. She does report a vague history of shortness of breath and occasionally chest pain. She states that several months ago she had her last episode of chest pain but 2 nights ago she had an episode of shortness of breath and pain down her left arm. She does not have any shortness of breath or chest pain to day. She has never had a heart attack. She denies any leg swelling. Any recent travel or recent surgery/immobilization. She is on oral contraceptives. She states that she seen at [facility] and she would like information for another primary care physician. - Related Data Allergies/Adverse Reactions: No Known Allergies Allergy (Verified 07/31/18 13:46) Past Medical History - General Information source: Patient - Social History Smoking Status: Current Every Day Smoker Frequency of alcohol use: None Drug Abuse: None Family History: DM, Hypertension, Malignancy - Mother with breast cancer Patient has suicidal ideation: No Patient has homicidal ideation: No Pulmonary Medical History: Reports: Hx Asthma, Hx Bronchitis Endocrine Medical History: Reports: Hx Diabetes Mellitus Type 1, Hx Diabetes Mellitus Type 2 Renal/ Medical History: Denies: Hx Peritoneal Dialysis Past Surgical History: Reports: Hx Section, Hx Orthopedic Surgery - back surgery, Hx Tonsillectomy, Hx Tubal Ligation - Immunizations Immunizations up to date: Yes Hx Diphtheria, Pertussis, Tetanus Vaccination: Yes Review of Systems - Review of Systems Constitutional: denies: Chills, Fever EENT: No symptoms reported Cardiovascular: Chest pain. denies: Palpitations, Dyspnea, Syncope, Dizziness, Lightheaded Respiratory: Short of breath. denies: Cough Gastrointestinal: denies: Abdominal pain, Diarrhea, Nausea, Vomiting Genitourinary: denies: Hematuria, Incontinence Female Genitourinary: See HPI, Vaginal discharge, Other Musculoskeletal: See HPI, Muscle pain Skin: See HPI, Rash Neurological/Psychological: No symptoms reported -: Yes All other systems reviewed and negative Physical Exam - Vital signs Vitals: Temp Pulse Resp BP Pulse Ox 98 F 68 17 128/92 H 99 01/31/19 04:14 01/31/19 04:14 01/31/19 04:14 01/31/19 04:14 01/31/19 04:14 Interpretation: Normal - General General appearance: Appears well, Alert In distress: None - HEENT Head: Normocephalic, Atraumatic Eyes: Normal Pupils: PERRL - Respiratory Respiratory status: No respiratory distress Chest status: Nontender Breath sounds: Normal Chest palpation: Normal - Cardiovascular Rhythm: Regular Heart sounds: Normal auscultation Murmur: No Notes: There is no leg edema - Abdominal Inspection: Normal Distension: No distension Bowel sounds: Normal Tenderness: Nontender Organomegaly: No organomegaly - Back Back: Normal, Nontender. No: CVA tenderness - Extremities General upper extremity: Normal inspection, Nontender, Normal ROM, Normal strength, Normal temperature General lower extremity: Normal inspection, Nontender, Normal ROM, Normal strength, Normal temperature Calf: Normal, Nontender, Other - No edema, negative Homans sign. - Neurological Neuro grossly intact: Yes Cognition: Normal Orientation: AAOx4 [place] Coma Scale Eye Opening: Spontaneous [place] Coma Scale Verbal: Oriented [place] Coma Scale Motor: Obeys Commands [place] Coma Scale Total: 15 Speech: Normal Cranial nerves: Normal. No: Facial palsy, Forehead sparing, Gaze palsy, Sensory deficit, Tongue deviation Cerebellar coordination: Normal. 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 No: Pronator drift Sensory: Normal - Psychological Associated symptoms: Normal affect, Normal mood - Skin Skin Temperature: Warm Skin Moisture: Dry Skin Color: Normal Course - Re-evaluation Re-evalutation: 01/31/19 10:20 Impression: Hyperglycemia, uncontrolled type 2 diabetes, medical noncompliance, bacterial vaginosis, cystic acne. Noted lab work with a sugar of 275. She is not acidotic. She has no electrolyte abnormalities. Her kidney function is normal. She has a reassuring EKG with no significant changes. And her chest x- ray is clear. She currently does not have any chest pain or shortness of breath. Did draw one troponin which was negative and do not think that she needs to have trending of this since her last episode of shortness of breath was 2 nights ago. We did have a significant conversation about her hyperglycemia and her uncontrolled type 2 diabetes. We discussed the importance of her taking her insulin without fail. We will send home with yl for her BV, write for 1 dose of Diflucan to prevent yeast infection. We will also send home with clindamycin ointment for her face. We will send to new primary care physician per her request and give dermatology follow-up. Patient agrees with the plan. Urged her to return if her symptoms worsen at all. - Vital Signs Vital signs: Temp Pulse Resp BP Pulse Ox 98 F 68 23 H 119/79 100 01/31/19 04:14 01/31/19 04:14 01/31/19 09:19 01/31/19 09:19 01/31/19 09:29 - Laboratory Result Diagrams: 01/31/19 09:23 01/31/19 09:23 Laboratory results interpreted by me: 01/31/19 01/31/19 01/31/19 07:33 07:58 09:23 RDW 14.9 H Sodium Glucose POC Glucose 298 H Urine Glucose (UA) >=500 H Urine Ketones TRACE H 01/31/19 09:23 RDW Sodium 135.1 L Glucose 275 H POC Glucose Urine Glucose (UA) Urine Ketones - Diagnostic Test Radiology reviewed: Image reviewed, Reports reviewed - EKG Interpretation by Me EKG shows normal: Sinus rhythm Rate: Normal Rhythm: NSR When compared to previous EKG there are: No significant change Additional EKG results interpreted by me: 01/31/19 No STEMI, rate of 66, normal sinus rhythm. There is T wave inversion in lead III and this is unchanged from prior in August 2014. Normal axis. No LVH. QTC is 432. 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 Monitor your blood sugars daily. Follow-up with primary care physician listed below. Take antibiotics for bacterial vaginosis. Use ointment for face. Follow-up with medical payment poster. Return if any worsening symptoms such as shortness of breath, chest pain, fever, intractable vomiting, confusion, or any other concerns. Prescriptions: Clindamycin Phosphate [Clindamax Lotion] 1 applic TP QHS #1 bottle Fluconazole [Diflucan] 150 mg PO ONCE PRN #1 tablet PRN Reason: Metronidazole [Flagyl 500 mg Tablet] 500 mg PO BID #14 tablet Referrals: BULMARO HERNANDEZ MD [ACTIVE STAFF] - Follow up in 1 week (For Primary care) WILLIS MYERS DO [ACTIVE STAFF] - Follow up in 1 week (for dermatology)
[2019-01-31 08:17] LABS: APPEARANCE,URINE CLEAR; BILIRUBIN,URINE NEGATIVE (NEGATIVE); COLOR,URINE YELLOW; GLUCOSE, URINE >=500 mg/dL (NEGATIVE); KETONES,URINE TRACE mg/dL (NEGATIVE); LEUKOCYTE ESTERASE,URINE NEGATIVE (NEGATIVE); NITRITE,URINE NEGATIVE (NEGATIVE); PROTEIN,URINE NEGATIVE (NEGATIVE); URINE SPECIFIC GRAVITY 1.039; UROBILINOGEN,URINE NEGATIVE mg/dL (<2.0)
[2019-01-31 09:34] LABS: ABSOLUTE BASOPHILS # (AUTO) 0.1 10^3/uL (0.0-0.2); ABSOLUTE EOSINOPHILS # (AUTO) 0.3 10^3/uL (0.0-0.6); ABSOLUTE LYMPHOCYTES (AUTO) 3.8 10^3/uL (0.5-4.7); ABSOLUTE MONOCYTES (AUTO) 0.8 10^3/uL (0.1-1.4); ABSOLUTE NEUT (AUTO) 5.1 10^3/uL (1.7-8.2); BASOPHILS % (AUTO) 1.4 % (0-2); EOSINOPHILS % (AUTO) 2.5 % (0-6); HEMATOCRIT 39.2 % (36.0-47.0); HEMOGLOBIN 13.2 g/dL (12.0-15.5); LYMPHOCYTES % (AUTO) 37.8 % (13-45); MEAN CORPUSCULAR HEMOGLOBIN 31.4 pg (27.0-33.4); MEAN CORPUSCULAR HGB CONC 33.7 g/dL (32.0-36.0); MEAN CORPUSCULAR VOLUME 93 fl (80-97); MONOCYTES % (AUTO) 7.5 % (3-13); PLATELET COUNT 260 10^3/uL (150-450); RED BLOOD COUNT 4.21 10^6/uL (3.72-5.28); RED CELL DISTRIBUTION WIDTH 14.9 % (11.5-14.0); SEGMENTED NEUTROPHILS % (AUTO) 50.8 % (42-78); TOTAL CELLS COUNTED % (AUTO) 100 %; WHITE BLOOD COUNT 10.1 10^3/uL (4.0-10.5)
[2019-01-31 09:37] LABS: BACTERIA (WET MOUNT) 3+ BACTERIA SEEN; EPITHELIALS (WET MOUNT) 3+ EPITHELIALS SEEN; RBCS (WET MOUNT) FEW RBCS SEEN; T.VAGINALIS (WET MOUNT) COULD NOT PERFORM; WBCS (WET MOUNT) FEW WBCS SEEN; YEAST (WET MOUNT) NO YEAST SEEN
[2019-01-31 09:53] LABS: ALBUMIN 3.9 g/dL (3.5-5.0); ALKALINE PHOSPHATASE 71 U/L (38-126); ANION GAP 9 (5-19); ASPARTATE AMINO TRANSFERASE 15 U/L (14-36); BILIRUBIN,DIRECT 0.2 mg/dL (0.0-0.4); BILIRUBIN,TOTAL 0.3 mg/dL (0.2-1.3); BLOOD UREA NITROGEN 12 mg/dL (7-20); CARBON DIOXIDE 24 mmol/L (22-30); CHLORIDE 102 mmol/L (98-107); GLUCOSE 275 mg/dL (75-110); POTASSIUM 4.1 mmol/L (3.6-5.0); TOTAL PROTEIN 6.7 g/dL (6.3-8.2)
--- NOTE | 2019-01-31 10:09 | RADIOLOGY REPORT (SQ) ---
EXAM DESCRIPTION: CHEST 2 VIEWS COMPLETED DATE/TIME: 01/31/2019 9:17 am REASON FOR STUDY: SOB COMPARISON: 07/31/2018 TECHNIQUE: Frontal and lateral radiographic views of the chest acquired. NUMBER OF VIEWS: Two view. LIMITATIONS: None. FINDINGS: LUNGS AND PLEURA: No opacities, masses or pneumothorax. No pleural effusion. MEDIASTINUM AND HILAR STRUCTURES: No masses or contour abnormalities. HEART AND VASCULAR STRUCTURES: Heart normal size. No evidence for failure. BONES: No acute findings. HARDWARE: None in the chest. OTHER: No other significant finding. IMPRESSION: NO SIGNIFICANT RADIOGRAPHIC FINDING IN THE CHEST. TECHNICAL DOCUMENTATION: JOB ID: [id number] [employer]- All Rights Reserved Reading location - IP/workstation name: [email or web address]
[2019-01-31 11:02] VITALS: BP 117/82
--- NOTE | 2019-02-01 00:16 | EKG REPORT ---
SEVERITY:- NORMAL ECG - SINUS RHYTHM : Confirmed by: Ashly Shah MD 01-Feb-2019 00:15:20
== END 2019-01-31 11:04 | disposition home or self-care (01) ==
LOC: ER 04:09
DX: N76.0 Acute vaginitis (principal); B96.89 Other specified bacterial agents as the cause of diseases classified elsewhere; L70.0 Acne vulgaris; E11.65 Type 2 diabetes mellitus with hyperglycemia; Z79.4 Long term (current) use of insulin; F17.200 Nicotine dependence, unspecified, uncomplicated; Z98.51 Tubal ligation status
CPT/HCPCS: 36415; 71046; 80053; 81001; 81025; 82962; 84484; 85025; 87210; 93005; 93010; 99284

== ENCOUNTER 2019-06-19 20:29 | Emergency (ER) | payer MEDICAID ==
[2019-06-19] MEDS ORDERED: NORMAL SALINE 1000 ML 1,000 ML IV ONE ×2 (20:58→22:23)
--- NOTE | 2019-06-19 21:01 | ER Document Report ---
ED Medical Screen (RME) - General Chief Complaint: High Blood Sugar Stated Complaint: REPORTS HIGH BLOOD SUGAR Time Seen by Provider: 06/19/19 20:55 Mode of Arrival: Ambulatory Information source: Patient Notes: 34-year-old female insulin-dependent diabetic presents to the emergency department with complaints of elevated glucose. Patient reports she thinks she has a yeast infection so she went to an urgent care where they did a random fingerstick blood sugar and found it to be greater than 400. She states that she has been off of her insulins for about 6 months. She reports excessive thirst and excessive urination. She states she stopped taking her insulin as she did not realize how important was. She denies use of any other medications or any other active medical diagnoses. She does report that she was diagnosed at age 18 while she was with gestational diabetes and that the diabetes never resolved itself after her ended. Exam: Patient alert, oriented, answering all questions appropriately. No acute distress noted. I have greeted and performed a rapid initial assessment of this patient. A comprehensive ED assessment and evaluation of the patient, analysis of test results and completion of the medical decision making process will be conducted by additional ED providers. I have specifically instructed the patient or family members with the patient to immediately return to any nursing staff should anything change in the patient's condition or with their chief complaint. TRAVEL OUTSIDE OF THE [place] IN LAST 30 DAYS: No - Related Data Allergies/Adverse Reactions: No Known Allergies Allergy (Verified 07/31/18 13:46) Past Medical History Pulmonary Medical History: Reports: Hx Asthma, Hx Bronchitis Endocrine Medical History: Reports: Hx Diabetes Mellitus Type 1, Hx Diabetes Mellitus Type 2 Renal/ Medical History: Denies: Hx Peritoneal Dialysis Past Surgical History: Reports: Hx Section, Hx Orthopedic Surgery - back surgery, Hx Tonsillectomy, Hx Tubal Ligation - Immunizations Immunizations up to date: Yes Hx Diphtheria, Pertussis, Tetanus Vaccination: Yes Physical Exam - Vital signs Vitals: Temp Pulse Resp BP Pulse Ox 99.4 F 100 20 146/85 H 97 06/19/19 20:34 06/19/19 20:34 06/19/19 20:34 06/19/19 20:34 06/19/19 20:34 Course - Vital Signs Vital signs: Temp Pulse Resp BP Pulse Ox 99.4 F 100 20 146/85 H 97 06/19/19 20:34 06/19/19 20:34 06/19/19 20:34 06/19/19 20:34 06/19/19 20:34
[2019-06-19 21:34] LABS: APPEARANCE,URINE CLEAR; BILIRUBIN,URINE NEGATIVE (NEGATIVE); COLOR,URINE YELLOW; GLUCOSE, URINE >=500 mg/dL (NEGATIVE); KETONES,URINE TRACE mg/dL (NEGATIVE); LEUKOCYTE ESTERASE,URINE TRACE (NEGATIVE); NITRITE,URINE NEGATIVE (NEGATIVE); PROTEIN,URINE NEGATIVE (NEGATIVE); URINE SPECIFIC GRAVITY 1.039; UROBILINOGEN,URINE NEGATIVE mg/dL (<2.0)
[2019-06-19 21:38] LABS: VENOUS BLOOD BASE EXCESS 0.1 mmol/L; VENOUS BLOOD HCO3 25.3 mmol/L (20-32); VENOUS BLOOD PCO2 42.9 mmHg (35-63); VENOUS BLOOD PH 7.39 (7.30-7.42)
[2019-06-19 21:45] LABS: ABSOLUTE BASOPHILS # (AUTO) 0.1 10^3/uL (0.0-0.2); ABSOLUTE EOSINOPHILS # (AUTO) 0.2 10^3/uL (0.0-0.6); ABSOLUTE LYMPHOCYTES (AUTO) 3.9 10^3/uL (0.5-4.7); ABSOLUTE MONOCYTES (AUTO) 0.7 10^3/uL (0.1-1.4); ABSOLUTE NEUT (AUTO) 4.7 10^3/uL (1.7-8.2); BASOPHILS % (AUTO) 0.6 % (0-2); EOSINOPHILS % (AUTO) 1.9 % (0-6); HEMATOCRIT 37.7 % (36.0-47.0); HEMOGLOBIN 12.8 g/dL (12.0-15.5); LYMPHOCYTES % (AUTO) 41.2 % (13-45); MEAN CORPUSCULAR HEMOGLOBIN 31.3 pg (27.0-33.4); MEAN CORPUSCULAR VOLUME 92 fl (80-97); MONOCYTES % (AUTO) 7.4 % (3-13); PLATELET COUNT 256 10^3/uL (150-450); RED BLOOD COUNT 4.09 10^6/uL (3.72-5.28); RED CELL DISTRIBUTION WIDTH 15.1 % (11.5-14.0); SEGMENTED NEUTROPHILS % (AUTO) 48.9 % (42-78); TOTAL CELLS COUNTED % (AUTO) 100 %; WHITE BLOOD COUNT 9.6 10^3/uL (4.0-10.5)
[2019-06-19 21:59] LABS: ALBUMIN 3.9 g/dL (3.5-5.0); ALKALINE PHOSPHATASE 68 U/L (38-126); ANION GAP 9 (5-19); ASPARTATE AMINO TRANSFERASE 17 U/L (14-36); BILIRUBIN,DIRECT 0.2 mg/dL (0.0-0.4); BILIRUBIN,TOTAL 0.3 mg/dL (0.2-1.3); BLOOD UREA NITROGEN 10 mg/dL (7-20); CALCIUM 9.2 mg/dL (8.4-10.2); CARBON DIOXIDE 25 mmol/L (22-30); CHLORIDE 101 mmol/L (98-107); GLUCOSE 363 mg/dL (75-110); POTASSIUM 4.2 mmol/L (3.6-5.0); TOTAL PROTEIN 7.1 g/dL (6.3-8.2)
--- NOTE | 2019-06-19 22:25 | ER Document Report ---
ED Blood Sugar Problem - General Chief Complaint: High Blood Sugar Stated Complaint: REPORTS HIGH BLOOD SUGAR Time Seen by Provider: 06/19/19 20:55 Mode of Arrival: Ambulatory Information source: Patient TRAVEL OUTSIDE OF THE [place] IN LAST 30 DAYS: No - HPI Onset: Other - Chronic condition of noncompliance with taking medications for diabetes type 2. Patient reports that she was on metformin but due to GI upset was unable to continue taking Metformin. Patient was placed on insulin at that point in time and I think she was on according to her history 2 types of insulin. However patient has not taken any insulin in greater than or equal to 6 months. Patient reports that she went to an urgent care yesterday because she thought she had a yeast infection. She had an exam done and was told they did not find any vaginal yeast infection however sent a prescription to the pharmacy for her to fill meanwhile her blood sugar was checked and it was elevated and she had some ketones in her urine therefore they sent her to the emergency department. Patient has no past history of diabetic ketoacidosis and for the last 6 months has not been on any medication for glucose control. Her visit today to the urgent care was not due to elevated blood sugar but for diagnosis or evaluation of a yeast infection. Onset/Duration: Constant Quality of pain: No pain Severity: Mild Insulin taken: No Glucose taken: No Similar symptoms previously: No Recently seen / treated by doctor: No - Patient seen in urgent care yesterday. - Related Data Allergies/Adverse Reactions: No Known Allergies Allergy (Verified 06/20/19 00:18) Past Medical History - General Information source: Patient - Social History Smoking Status: Current Every Day Smoker Frequency of alcohol use: None Drug Abuse: None Lives with: Family Family History: Reviewed & Not Pertinent, DM, Hypertension, Malignancy - Mother with breast cancer Patient has suicidal ideation: No Patient has homicidal ideation: No - Medical History Medical History: Other - Asthma Pulmonary Medical History: Reports: Hx Asthma, Hx Bronchitis Endocrine Medical History: Reports: Hx Diabetes Mellitus Type 1, Hx Diabetes Mellitus Type 2 Renal/ Medical History: Denies: Hx Peritoneal Dialysis Past Surgical History: Reports: Hx Section, Hx Orthopedic Surgery - back surgery, Hx Tonsillectomy, Hx Tubal Ligation - Immunizations Immunizations up to date: Yes Hx Diphtheria, Pertussis, Tetanus Vaccination: Yes Review of Systems - Review of Systems Constitutional: No symptoms reported Respiratory: Other - History of asthma Gastrointestinal: No symptoms reported Genitourinary: Other - History of vaginal discharge Physical Exam - Vital signs Vitals: Temp Pulse Resp BP Pulse Ox 99.4 F 100 20 146/85 H 97 06/19/19 20:34 06/19/19 20:34 06/19/19 20:34 06/19/19 20:34 06/19/19 20:34 Interpretation: Normal - General General appearance: Appears well, Alert - HEENT Head: Normocephalic, Atraumatic Eyes: Normal Pupils: PERRL - Respiratory Respiratory status: No respiratory distress Chest status: Nontender Breath sounds: Normal Chest palpation: Normal - Cardiovascular Rhythm: Regular Heart sounds: Normal auscultation Murmur: No - Abdominal Inspection: Normal Distension: No distension Bowel sounds: Normal Tenderness: Nontender Organomegaly: No organomegaly - Back Back: Normal, Nontender - Extremities General upper extremity: Normal inspection, Nontender, Normal color, Normal ROM, Normal temperature General lower extremity: Normal inspection, Nontender, Normal color, Normal ROM, Normal temperature, Normal weight bearing. No: Caridad's sign - Neurological Neuro grossly intact: Yes Cognition: Normal Orientation: AAOx4 [place] Coma Scale Eye Opening: Spontaneous [place] Coma Scale Verbal: Oriented [place] Coma Scale Motor: Obeys Commands [place] Coma Scale Total: 15 Speech: Normal Motor strength normal: LUE, RUE, LLE, RLE Sensory: Normal - Psychological Associated symptoms: Normal affect, Normal mood - Skin Skin Temperature: Warm Skin Moisture: Dry Skin Color: Normal Course - Re-evaluation Re-evalutation: 06/20/19 00:32 Patient is not in diabetic ketoacidosis with a CO2 of 25. Patient's blood sugar has continued to decrease from 363 down to 250 on discharge. Patient received 2 L of IV fluids and has not shown any deterioration in her condition at this time and feels better. I am going to begin patient on glipizide oral agent inasmuch as she says she could not tolerate taking metformin. Patient does not appear to be an insulin-dependent diabetic at this time. - Vital Signs Vital signs: Temp Pulse Resp BP Pulse Ox 97.5 F 62 20 128/80 H 98 06/20/19 00:05 06/20/19 00:05 06/20/19 00:05 06/20/19 00:05 06/20/19 00:05 - Laboratory Result Diagrams: 06/19/19 21:24 06/19/19 21:24 Laboratory results interpreted by me: 06/19/19 06/19/19 06/19/19 21:03 21:24 21:24 RDW 15.1 H Sodium 135.4 L Glucose 363 H POC Glucose Urine Glucose (UA) >=500 H Urine Ketones TRACE H Urine Blood SMALL H Ur Leukocyte Esterase TRACE H 06/19/19 06/20/19 22:55 00:19 RDW Sodium Glucose POC Glucose 269 H 248 H Urine Glucose (UA) Urine Ketones Urine Blood Ur Leukocyte Esterase Discharge - Discharge Clinical Impression: Hyperglycemia due to type 2 diabetes mellitus Qualifiers: Diabetes mellitus group 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 Not all high blood sugar requires long-term treatment. High blood sugar can be due to medications, , or the stress of illness. (These cases are "borderline diabetes.") If the doctor feels your high blood sugar might get better with time, you may not require treatment now. You will be scheduled for further evaluation. It's very important that you follow through. Uncontrolled high blood sugar leads to early heart disease, strokes, nerve damage, eye damage, and kidney damage. All diabetics should follow a diet designed to control the blood sugar. Overweight diabetics should exercise regularly and lose weight. If this is not sufficient to control the blood sugar, pills or insulin shots are necessary. Younger people who develop diabetes almost always require insulin daily. Home testing of blood sugars or urine sugar is required. Diabetic teaching is available to help you figure insulin doses and monitor the blood sugar. Call the physician if there is faintness, excess sleepiness, or very rapid breathing. If hypoglycemia (LOW blood sugar) develops, symptoms are shakiness, weakness, sweating, and confusion. In this case, you should eat or drink something with sugar at once. Prescriptions: Glipizide [Glipizide Xl] 10 mg PO DAILY #30 [id number]
[2019-06-20 00:06] VITALS: BP 128/80
== END 2019-06-20 00:52 | disposition home or self-care (01) ==
LOC: ER 20:29
DX: E11.65 Type 2 diabetes mellitus with hyperglycemia (principal); Z79.84 Long term (current) use of oral hypoglycemic drugs; Z91.14 Patient's other noncompliance with medication regimen; F17.200 Nicotine dependence, unspecified, uncomplicated; J45.909 Unspecified asthma, uncomplicated
CPT/HCPCS: 99284; 96360; 96361; 36415; 82962; 85025; 81025; 80053; 81001; 82803; J7030